=== PATIENT | male | born 1975 | race Caucasian/White ===

== ENCOUNTER 2020-05-12 16:36 | Outpatient (REF) | payer MEDICAID, SELFPAY | END 2020-05-12 16:37 | disposition home or self-care (01) | LOC: HO.LAB 16:36 | PROVIDERS: Visit Provider Internal Medicine | DX: Z20.828 Contact with and (suspected) exposure to other viral communicable diseases (principal) | CPT/HCPCS: C9803; U0003 ==

== ENCOUNTER 2020-07-03 06:35 | Outpatient (REF) | payer MEDICAID, SELFPAY | END 2020-07-03 06:36 | disposition home or self-care (01) | LOC: HO.LAB 06:35 | PROVIDERS: Visit Provider Internal Medicine | DX: Z20.828 Contact with and (suspected) exposure to other viral communicable diseases (principal) | CPT/HCPCS: 36415; C9803; U0003 ==

== ENCOUNTER 2020-11-11 14:43 | Emergency (ER) | payer MEDICAID, SELFPAY ==
[2020-11-11 15:01] VITALS: BP 121/91; PULSE 99; RESP 18; TEMP 36.6; O2SAT 97; BMI 35.5
--- NOTE | 2020-11-11 15:42 | ED_ITS ---
HPI - Back Pain/Injury General Chief Complaint: Back Pain/Injury Stated Complaint: BACK PAIN Time Seen by Provider: 11/11/20 15:30 Source: patient Mode of arrival: ambulatory Limitations: no limitations History of Present Illness HPI Narrative: 45 y/o male presenting with 1 week of worsening nontraumatic low back pain. 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 He denies trauma or specific injury. History of similar pain but not as bad. No urinary symptoms. No numbness, tingling, weakness, incontinence or fevers. Pain is located throughout his entire lower back and it radiates into his hips. MD elicited complaint: back pain Pertinent past history: prior back pain (not as severe) Onset (ago): day(s) (8-) Timing: constant Severity: severe Similar Symptoms Previously: Yes Quality: aching Location: right lower back and left lower back Radiation: buttocks Exacerbating factors: movement Relieving factors: immobilization Context: unknown Associated symptoms: difficulty walking Treatments prior to arrival: acetaminophen Work related injury: Yes Related Data Previous Rx's Medication Instructions Recorded cyclobenzaprine 10 mg PO TID PRN #15 tab 11/11/20 ibuprofen 800 mg PO Q8H PRN #20 tab 11/11/20 lidocaine [Lidoderm] 1 patch TOPICAL DAILY #15 ea 11/11/20 Allergies Allergy/AdvReac Type Severity Reaction Status Date / Time Penicillins [PCN] Allergy Unknown UNKNOWN Verified 11/11/20 15:43 Review of Systems Review of Systems: Constitutional: No Fever, No Chills Cardiovascular: No Chest Pain, No SOB Respiratory: No Cough, No Sputum Gastrointestinal: No Nausea, No Vomiting, No abdominal Pain Genitourinary: No Dysuria, No Urinary Frequency, No Hematuria Musculoskeletal: + joint pain, + Myalgias Skin: No Skin Lesions, No rash Neuro: No Weakness, No Numbness Heme/Lymph: No Bruising, No Lymphadenopathy PMFSH Past Medical History Attestation statement: The following information was validated with the patient. Medical History (Updated 11/11/20 @ 15:42 by MICHELL Marti) No known health problems Social History Social History Advance Directives: No Advance Directives Information Provided: No Physical Exam Vital Signs: Vital Signs: Last Vital Signs Temp 97.9 F 11/11/20 15:01 Pulse 99 11/11/20 15:01 Resp 18 11/11/20 15:52 BP 121/91 H 11/11/20 15:01 Pulse Ox 97 11/11/20 15:01 Body Mass Index 35.5 Appearance: Alert. Oriented X3. No acute distress. HEENT: normal inspection CVS: Normal heart rate and rhythm. Pulses normal. Respiratory: No respiratory distress. Skin: Skin warm and dry. Normal skin color. Normal skin turgor. No rashes. Back: soft tissue tenderness throughout middle and upper lumar areas bilaterally, no spinal tenderness. limited ROM due to pain. slow movement. Extremities: atraumatic, no LE edema Neuro: Oriented X 3. No motor deficit. No sensory deficit. Slow but steady gait. 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 Educated on supportive shoes to improve back support. He has no red flag symptoms of LBP. No fevers, no hx IVDA. Ambulates with steady gait. Will treat for muscular pain with NSAID, muscle relaxer and lidoderm. Patient encouraged to f/u with PCP. Stable for d/c home. Discharge Plan Discharge Clinical Impression: Strain of lumbar region Qualifiers: Encounter type: initial encounter Qualified Code(s): S39.012A - Strain of m uscle, fascia and tendon of lower back, initial encounter Patient Disposition: Home, Self-Care Instructions: Low Back Strain (ED), Lower Back Exercises (ED) Additional Instructions: No bending, lifting or twisting. Use ice several times per day for 20 minutes at a time for the next 48 hours and then change to heat. Take medications as prescribed to help with pain and discomfort. Follow up with your Primary Care Doctor this week. If your pain worsens, if you develop new numbness, tingling, weakness, loss of function or incontinence call 911 or come back to the ER right away for evaluation. Prescriptions: New cyclobenzaprine 10 mg tablet 10 mg PO TID PRN (Reason: muscle spasm) Qty: 15 RF: 0 ibuprofen 800 mg tablet 800 mg PO Q8H PRN (Reason: pain) Qty: 20 RF: 0 lidocaine [Lidoderm] 5 % adhesive patch,medicated 1 patch topical DAILY Qty: 15 RF: 0 Stand Alone Forms: Work/School Release Interventions: ED Discharge Assessment Last Done: 11/11/20 15:51 Discharge Date/Time: 11/11/20 15:53
[2020-11-11] MEDS: Ketorolac Tromethamine 60 MG/2 ML VIAL IM (15:45)
[2020-11-11] MEDS: Lidocaine 4 % Patch ADH..PATCH 1 PATCH TRANSDERMA (15:45)
[2020-11-11] MEDS: HYDROcodone Bit/Acetam 5/325 TABLET 1 TAB PO (15:46)
[2020-11-11 15:52] VITALS: RESP 18
== END 2020-11-11 15:53 | disposition home or self-care (01) ==
PROVIDERS: Emergency Provider Emergency Medicine Emergency Medical Services; PCP Internal Medicine
DX: S39.012A Strain of muscle, fascia and tendon of lower back, initial encounter (principal); X50.1XXA Overexertion from prolonged static or awkward postures, initial encounter; Y93.89 Activity, other specified; Y92.9 Unspecified place or not applicable; Y99.0 Civilian activity done for income or pay
CPT/HCPCS: 96372; 99284; J1885

== ENCOUNTER 2021-05-01 10:47 | Emergency (ER) | payer MEDICAID, SELFPAY ==
--- NOTE | ~2021-05-01 | XR_ITS ---
EXAMINATION: XR CHEST CLINICAL INFORMATION: Cough. Chills, sweating and congested with wheezing for 6 days. COMPARISON: Chest radiograph dated from 02/18/2020. TECHNIQUE: AP view of the chest was obtained. FINDINGS: Normal appearance of the cardiomediastinal silhouette. Mildly increased interstitial markings predominantly in the lung bases without focal airspace opacities, pleural effusions or pneumothorax. No acute osseous findings. XR/XR chest 1V IMPRESSION: Mild interstitial prominence of uncertain etiology. This could be related with an acute infectious or inflammatory process of the small airways such as seen in cases of asthma, bronchitis or atypical infections. No dense focal consolidation.
[2021-05-01 11:03] VITALS: BP 128/79; PULSE 84; RESP 16; TEMP 36.7; O2SAT 96; BMI 35.5
[2021-05-01 11:44] LABS: Strep A Nucleic Acid Negative (Negative)
--- NOTE | 2021-05-01 11:48 | ED.URI ---
HPI - URI/Sore Throat General Chief Complaint: Upper Respiratory Symptoms Stated Complaint: cough, chest wall pain Time Seen by Provider: 05/01/21 11:13 Source: patient Mode of arrival: ambulatory Limitations: no limitations History of Present Illness HPI Narrative: 45-year-old male with a past medical history of asthma presenting to the ED with complaints of chills, diaphoresis, sore throat, cough with wheezing and chest congestion, no sputum production, shortness of breath x6 days worse today. Reports that he had diarrhea for 3 days which has already resolved. He reports he used to use an asthma pump although he does not have any at this time. He denies any measured fevers, dizziness, headache, neck pain/stiffness, chest pain, dyspnea on exertion, orthopnea, palpitations, nausea/vomiting, abdominal pain, dysuria, hematuria, abnormal penile discharge, recent travel or sick contacts, lower extremity edema or calf tenderness or any other symptoms complaints or concerns at this time MD elicited complaint: cough and sore throat Pertinent past history: asthma Onset (ago): day(s) (6 days worse today) Consistency: constant and progressively worsening Severity: moderate Able to tolerate fluids by mouth: Yes Exacerbating factors: swallowing and deep breaths Relieving factors: nothing Associated symptoms: chills (And sweats), sore throat, cough, shortness of breath and diarrhea (Resolved at this time) Treatments prior to arrival: none Related Data Previous Rx's Medication Instructions Recorded cyclobenzaprine 10 mg tablet 10 mg PO TID PRN #15 tab 11/11/20 ibuprofen 800 mg tablet 800 mg PO Q8H PRN #20 tab 11/11/20 lidocaine 5 % topical patch 1 patch TOPICAL DAILY #15 ea 11/11/20 (Lidoderm) albuterol sulfate 0.63 mg/3 mL 0.63 mg INHALATION QID PRN #75 ml 05/01/21 solution for nebulization albuterol sulfate 90 mcg/actuation 1 inh INHALATION QID PRN #8.5 g 05/01/21 aerosol inhaler azithromycin 250 mg tablet See Rx Instructions .ROUTE 05/01/21 .COMPLEX #6 tab codeine 10 mg-guaifenesin 100 mg/5 5 ml PO Q6H PRN #120 ml 05/01/21 mL oral liquid (Guaifenesin AC) nebulizers (AeroEclipse II #1 ea 05/01/21 Nebulizer) prednisone 20 mg tablet 40 mg PO DAILY 5 Days #10 tab 05/01/21 Allergies Allergy/AdvReac Type Severity Reaction Status Date / Time Penicillins [PCN] Allergy Unknown UNKNOWN Verified 11/11/20 15:43 Review of Systems Review of Systems: Constitutional : No Weight loss, No Fever, + Chills, No Night Sweats, No Fatigue, No Malaise ENT/Mouth : No Hearing loss, No Ear Pain, No Nasal Congestion, No Sinus Pain, No Hoarseness, + sore throat, No Rhinorrhea, No Swallowing Difficulty Eyes: No Eye Pain, No Swelling, No Redness, No Foreign Body, No Discharge, No Vision Changes Cardiovascular : No Chest Pain, No SOB, No Dyspnea on Exertion, No Orthopnea, No Edema, No Palpitations Respiratory : + Cough, + Wheezing, + Dyspnea, No sputum Gastrointestinal : No Nausea, No Vomiting, + resolved Diarrhea, No Constipation, No abdominal Pain, No Hematochezia, No Melena Genitourinary : no irregular bleeding, No Dysuria, No Urinary Frequency, No Hematuria, No Urinary Incontinence, No Urgency, No Flank Pain, No Urinary Flow Changes, No Hesitancy Musculoskeletal : No joint pain, No Myalgias, No Joint Swelling Skin : No Skin Lesions, No rash Neuro : No Weakness, No Numbness, No Paresthesias, No Loss of Consciousness, No Dizziness, No Headache Psych : No Anxiety/Panic, No Depression, No SI/HI/AH/VH, No Social Issues, Heme/Lymph: No Bruising, No Bleeding,No Lymphadenopathy Endocrine : No Polyuria, No Polydipsia, No Temperature Intolerance Yes all other systems are reviewed and are negative REPLACED BY [facility] Past Medical History Attestation statement: The following information was validated with the patient. Medical History Asthma No known health problems Sinus infection Social History Social History Advance Directives: No Physical Exam Vital Signs: Vital Signs: Last Vital Signs Temp 98.1 F 05/01/21 11:03 Pulse 84 05/01/21 11:03 Resp 16 05/01/21 11:03 BP 128/79 05/01/21 11:03 Pulse Ox 96 05/01/21 11:03 Body Mass Index 35.5 vital signs have been reviewed as normal and appeared to be correct. Blood pressure normal. Heart rate normal. Respiration rate normal. Temperature normal. Oxygen saturation normal. Appearance: Alert. Oriented X3. No acute distress. Head: Normal external exam. Normocephalic. Atraumatic. Eyes: PERRLA. EOMI. Conjunctiva and sclera normal. Eyelids normal. ENT: EAC normal. TM's Normal. Pharynx normal. Uvula midline. Moist mucous membranes. No trismus noted. No drooling noted. No muffled voice noted. Neck: Normal inspection. Neck supple. FROM. No adenopathy. Thyroid Normal. No meningeal signs. No neck mass noted. CVS: Normal heart rate and rhythm. Heart sound normal. Pulses normal throughout. No murmurs/rales/gallops. Respiratory: No respiratory distress. Painless inspiration. Breath sounds normal. No wheezes/rales/rhonchi noted. Chest nontender. No accessory muscle usage noted or decreased air movement noted. Abdomen: Soft and nontender. Bowel sounds normal in all 4 quadrants. No distention noted. No organomegaly noted. No visible injury noted. Back: No CVA tenderness. Full range of motion noted. No rashes/lesion/induration/fluctuance or signs of infection noted. Skin: Skin warm and dry. Normal skin color. Normal skin turgor. No rashes/lesions/lacerations noted. Extremities: No lower extremity edema. Extremities exhibit normal range of motion. Extremities nontender. Neuro: Oriented X 3. No motor deficit. No sensory deficit. Reflexes normal. Normal steady gait. No focal neuro deficits noted. Vascular: + radial pulses/+ 2 distal pedal pulses/+2 dorsalis pedis b/l. Normal cap refill. No cyanosis noted to upper extremity nails and lower extremity toes nails. Course Course Course Narrative: 45-year-old male with a past medical history of asthma presenting to the ED with complaints of chills, diaphoresis, sore throat, cough with wheezing and chest congestion, no sputum production, shortness of breath x6 days worse today. Reports that he had diarrhea for 3 days which has already resolved. He reports he used to use an asthma pump although he does not have any at this time. Chest x-ray revealed mild interstitial prominence of uncertain etiology which could be related with acute infectious or inflammatory of the small airways such as seen in asthma bronchitis or atypical infection no dense focal consolidation. Patient negative for strep. COVID/RSV/flu swab are still pending at this time although we will DC home with antibiotics and symptomatic treatment instructions to self isolate. I will call him at home in 2-4 hours with negative or positive results for COVID/RSV/flu. Along with instructions return if any new or worsening symptoms to follow up with primary care provider. Patient understands agrees with this plan. MDM - URI/Sore Throat Medical Records Attestation: I reviewed the patient's medical records. Lab Data Attestation: I reviewed the patient's lab results. Labs: Lab Results 05/01/21 Range/Units 11:22 S. pyogenes GrpA HEBER Negative (Negative) Imaging Data Chest x-ray: Attestation: I personally reviewed and interpreted this imaging study as follows: Radiologist's impression: FINDINGS: Normal appearance of the cardiomediastinal silhouette. Mildly increased interstitial markings predominantly in the lung bases without focal airspace opacities, pleural effusions or pneumothorax. No acute osseous findings. XR/XR chest 1V IMPRESSION: Mild interstitial prominence of uncertain etiology. This could be related with an acute infectious or inflammatory process of the small airways such as seen in cases of asthma, bronchitis or atypical infections. No dense focal consolidation. Discharge Plan Discharge Clinical Impression: Acute bronchitis with bronchospasm, Asthma exacerbation Patient Disposition: Home, Self-Care Instructions: Asthma (ED), How to Use a Metered-Dose Inhaler (ED), Acute Bronchitis (ED), How to Use a Nebulizer (ED) Additional Instructions: Based on your symptoms and history we have sent a COVID-19. Although your RESULT IS PENDING at this time. RESULTS should return within 2-4 hours. At this time you will be contacted with either NEGATIVE OR POSITIVE results. -Please wait until we contact you for your results. At this time you will be okay for discharge. Please plan for self quarantine for up to 14 days. Do not expose yourself to others. You may not go to work. If testing does come back negative you may return to activities as long as you are no longer having any symptoms for at least 3 days. Please continue to follow cold instructions and wash your hands frequently. You may take Tylenol as directed on the bottle for pain or fever. Patient seen in the emergency department on 04/30/2021 and should be excused from work until negative test results AND until 72 hours without any symptoms AND at least 7-10 days have passed since symptoms first appeared or since last exposure to COVID-19 positive patient CDC Guidelines for home isolation: - Stay away from others - WEAR A MASK if you are sick AND STAY HOME - Cover your mouth and nose with a tissue when you cough or sneeze. Dispose of tissues in a lined trash can and wash your hands immediately with soap and water for at least 20 seconds. If soap and water are not available, clean hands with alcohol-based hand intensivist that contains at least 60% alcohol. - Clean your hands often with soap and water for at least 20 seconds - Avoid touching your eyes, nose and mouth with unwashed hands - Do not share dishes, drinking glasses, cups, eating utensils, towels, or bedding with other people in your home. After using these items, wash them thoroughly with soap and water or put in the warehouse handler. - Clean high-touch surfaces in your isolation area ( sick room and bathroom) every day; let a caregiver clean and disinfect high-touch surfaces in other areas of the home. Clean the area or item with soap and water or another detergent if it is dirty. Then, use a household disinfectant. - Limit contact with pets and animals: If you must care for a pet, wash your hands before and after interacting with them). Prescriptions: New albuterol sulfate 0.63 mg/3 mL solution for nebulization 0.63 mg inhalation QID PRN (Reason: shortness of breath or wheezing) Qty: 75 RF: 0 azithromycin 250 mg tablet See Rx Instructions .ROUTE .COMPLEX Qty: 6 RF: 0 prednisone 20 mg tablet 40 mg PO DAILY 5 Days Qty: 10 RF: 0 (DME) AeroEclipse II Nebulizer Misc See Rx Instructions .ROUTE .MEDSUPPLY Qty: 1 RF: 0 codeine-guaifenesin [Guaifenesin AC] 10-100 mg/5 mL liquid 5 ml PO Q6H PRN (Reason: cold symptoms) Qty: 120 RF: 0 albuterol sulfate 90 mcg/actuation HFA aerosol inhaler 1 inh inhalation QID PRN (Reason: shortness of breath or wheezing) Qty: 8.5 RF: 0 No Action cyclobenzaprine 10 mg tablet 10 mg PO TID PRN (Reason: muscle spasm) Qty: 15 RF: 0 ibuprofen 800 mg tablet 800 mg PO Q8H PRN (Reason: pain) Qty: 20 RF: 0 lidocaine [Lidoderm] 5 % adhesive patch,medicated 1 patch topical DAILY Qty: 15 RF: 0 Referrals: Sonia Spann MD [Primary Care Provider] - 2 days Stand Alone Forms: Work/School Release Print Language: Turkmen
[2021-05-01 12:21] LABS: Influenza A PCR NEGATIVE (Negative); Influenza B PCR NEGATIVE (Negative); Resp Syncy Virus RNA Qual PCR NEGATIVE (Negative); SARS COV2 PCR INHOUSE NEGATIVE (Negative)
== END 2021-05-01 12:08 | disposition home or self-care (01) ==
PROVIDERS: Physician Assistant Medical; Emergency Provider Emergency Medicine Emergency Medical Services; PCP Internal Medicine
DX: J45.901 Unspecified asthma with (acute) exacerbation (principal); J20.9 Acute bronchitis, unspecified; Z79.899 Other long term (current) drug therapy; Z20.822 Contact with and (suspected) exposure to COVID-19
CPT/HCPCS: 0241U; 36415; 71045; 87651; 99283

== ENCOUNTER 2021-05-30 08:18 | Emergency (ER) | payer MEDICAID, SELFPAY ==
[2021-05-30 08:27] VITALS: BP 133/88; PULSE 88; RESP 18; TEMP 36.9; O2SAT 98; BMI 36.3
--- NOTE | 2021-05-30 08:30 | ECG_ITS ---
Test Reason : DIZZY Blood Pressure : / mmHG Vent. Rate : 073 BPM Atrial Rate : 073 BPM P-R Int : 144 ms QRS Dur : 084 ms QT Int : 368 ms P-R-T Axes : 059 052 036 degrees QTc Int : 405 ms Artifact in tracing Sinus rhythm with sinus arrhythmia Normal ECG When compared with ECG of 18-FEB-2020 10:51, No significant changes seen Referred By: Generic ED Physician Electronically Signed By:NOVA PALACIOS
[2021-05-30] MEDS: hydrOXYzine HCL 25 MG TABLET PO (10:07)
[2021-05-30 10:11] LABS: MANUAL DIFF FLAG NO
[2021-05-30 10:19] LABS: Basophils Percent Auto 0.4 % (0-2); Eosinophils Absolute Auto 0.2 X10*3/uL (0.0-0.4); Eosinophils Percent Auto 2.7 % (0-4); Hematocrit 44.7 % (42.0-52.0); Hemoglobin 14.9 g/dl (14.0-18.0); Imm Gran Abs Auto 0.01 X10*3/uL (0.00-0.03); Imm Gran Pct Auto 0.1 % (0.0-0.4); Lymphocytes Absolute Auto 2.1 X10*3/uL (1.2-4.9); Lymphocytes Percent Auto 30.7 % (20-40); Mean Corpuscular HGB Conc 33.3 g/dl (31.0-36.0); Mean Corpuscular Hemoglobin 30.1 pg (27.0-33.0); Mean Corpuscular Volume 90.3 fL (80.0-98.0); Mean Platelet Volume 10.5 fL (9.4-12.4); Monocytes Absolute Auto 0.4 X10*3/uL (0.1-1.2); Monocytes Percent Auto 5.7 % (2-11); Neutrophils Absolute Auto 4.1 x10*3/uL (2.0-8.3); Neutrophils Percent Auto 60.4 % (45-73); Platelet Count 220 X10*3/uL (160-400); Red Blood Count 4.95 X10*6/uL (4.60-5.80); Red Cell Distribution Width 12.6 % (11.0-16.0); White Blood Count 6.7 X10*3/uL (4.8-10.8)
[2021-05-30 10:35] LABS: Alanine Aminotransferase 83 U/L (0-40); Albumin Level 4.2 g/dL (3.5-5.0); Alkaline Phosphatase 55 U/L (39-117); Anion Gap 10 (12-20); Aspartate Amino Transferase 38 U/L (5-37); Bilirubin Direct 0.2 mg/dL (0.0-0.5); Bilirubin Total 0.6 mg/dL (0.0-1.0); Blood Urea Nitrogen 10 mg/dL (9-16); Calcium 9.3 mg/dL (8.4-10.2); Carbon Dioxide 29 mmol/L (22-29); Chloride 106 mmol/L (96-108); Estimated Glomerular Filt Rate > 60; Glucose Random 105 mg/dL (60-115); Magnesium 2.1 mg/dL (1.6-2.6); Potassium 4.2 mmol/L (3.3-5.1); Sodium 141 mmol/L (135-145); Total Protein 6.9 g/dL (6.5-8.0)
[2021-05-30 10:41] LABS: Troponin-I High Sensitivity < 3.5 ng/L (<3.5-35.0)
--- NOTE | 2021-05-30 11:04 | ED.NEUROSD ---
HPI - Neuro Symptoms/Deficit General Chief Complaint: Neuro Symptoms/Deficit Stated Complaint: TINGLING IN FACE DIFF BREATHING AND SWALLOWING Time Seen by Provider: 05/30/21 09:33 Source: patient Mode of arrival: ambulatory History of Present Illness HPI Narrative: 45-year-old male with a past medical history of asthma, sinusitis, presenting to the ED complaining of sudden onset finger/facial tingling with chest tightness and difficulty swallowing this morning while at work. Reports symptomatic improvement now with mild residual oral tingling. Admits to SOB during episode denies at present. Reports similar incidents in the past with anxiety reaction. Denies headache, vision change/loss, weakness, abdominal pain, nausea/vomiting Onset (ago): hour(s) Relieving factors: time On Anticoagulants: No Associated symptoms: chest pain and shortness of breath Treatments Prior to Arrival: none Related Data Previous Rx's Medication Instructions Recorded cyclobenzaprine 10 mg tablet 10 mg PO TID PRN #15 tab 11/11/20 ibuprofen 800 mg tablet 800 mg PO Q8H PRN #20 tab 11/11/20 lidocaine 5 % topical patch 1 patch TOPICAL DAILY #15 ea 11/11/20 (Lidoderm) albuterol sulfate 0.63 mg/3 mL 0.63 mg (3 mL) INHALATION QID PRN 05/01/21 solution for nebulization #75 ml albuterol sulfate 90 mcg/actuation 1 inh INHALATION QID PRN #8.5 g 05/01/21 aerosol inhaler azithromycin 250 mg tablet See Rx Instructions .ROUTE 05/01/21 .COMPLEX #6 tab codeine 10 mg-guaifenesin 100 mg/5 5 ml PO Q6H PRN #120 ml 05/01/21 mL oral liquid (Guaifenesin AC) nebulizers (AeroEclipse II #1 ea 05/01/21 Nebulizer) prednisone 20 mg tablet 40 mg PO DAILY 5 Days #10 tab 05/01/21 Allergies Allergy/AdvReac Type Severity Reaction Status Date / Time Penicillins [PCN] Allergy Unknown UNKNOWN Verified 11/11/20 15:43 Review of Systems Review of Systems: Constitutional: No Fever, No Chills, No Fatigue, No Malaise ENT/Mouth: No Ear Pain, No Nasal Congestion, No sore throat, No Rhinorrhea, No Swallowing Difficulty Eyes: No Eye Pain, No Swelling, No Discharge, No Vision Changes Cardiovascular: + Chest tightness, + SOB (resolved), No Edema, No Palpitations Respiratory: No Cough, No Sputum, No Dyspnea Gastrointestinal: No Nausea, No Vomiting, No Abdominal pain Genitourinary: No Dysuria, No Urinary Frequency, No Flank Pain, No Urinary Flow Changes Musculoskeletal: No joint pain, No Myalgias, No Joint Swelling Skin: No Skin Lesions, No rash Neuro: No Weakness, No Numbness, + Paresthesias, No Loss of Consciousness, No Dizziness, No Headache Yes all other systems are reviewed and are negative Neurologic: Denies Abnormal speech present COUNTS INCLUDE 234 BEDS AT THE [facility] Past Medical History Attestation statement: The following information was validated with the patient. Medical History Asthma No known health problems Sinus infection Social History Social History Advance Directives: No Advance Directives Information Provided: No Physical Exam Vital Signs: Vital Signs: Last Vital Signs Temp 98.0 F 05/30/21 11:12 Pulse 65 05/30/21 11:12 Resp 18 05/30/21 11:12 BP 119/75 05/30/21 11:12 Pulse Ox 99 05/30/21 11:12 BMI result Body Mass Index 36.3 Const: General: cooperative, healthy appearing, no acute distress and anxious Orientation/consciousness: patient oriented x3 Limitations: no limitations HENMT: Head: Yes normal to inspection and Yes atraumatic Ears: hearing grossly normal bilaterally General nose exam: Normal external nose present Face and sinus: Yes normal facial exam Throat: Yes posterior oropharynx normal Eyes: General: appearance normal, both eyes and all related structures EOM: EOMs intact bilaterally Neck: Neck: Yes normal visual inspection and Yes no meningeal signs Resp: Effort & Inspection: normal respiratory effort Auscultation: clear to auscultation bilaterally, no rales, no rhonchi and no wheezes Cardio: Rate: regular rate Heart sounds: S1 normal heart sound present and S2 normal heart sound present GI: Inspection: Yes normal to inspection Palpation (GI): Soft to palpation, nontender, no guarding and not rigid Skin: Rashes: no rashes Wounds: no wounds Neuro: General: patient oriented x3, gait normal, tone normal, moves all extremities, no meningeal signs, no focal motor deficits and CN's II-XI intact bilaterally Cranial nerves: Yes CN's II-XII intact bilaterally and Yes Bilaterally intact EOM present Cognition (Neuro): normal cognition Speech: No Abnormal speech present Gait exam (Neuro): Normal gait present Motor exam (neuro): 5/5 motor strength present throughout, Pronator motor function not present and no tremor noted Coordination: [id number] test normal Romberg Test: Negative Extrem: General: Yes normal to inspection and Yes no pedal edema Course Course Course Narrative: -labs unremarkable, troponin x2 negative Results discussed with patient including worrisome signs and symptoms and strict return precautions and need to follow-up with PCP/Cardiology for patient verbalized understanding feel safe for discharge home at this time MDM - Neuro Symptoms/Deficit MDM Narrative Medical decision making narrative: 45-year-old male with a past medical history of asthma, sinusitis, presenting to the ED complaining of sudden onset finger/facial tingling with chest tightness and difficulty swallowing this morning while at work. On exam vital signs stable, NAD/nontoxic, no focal neuro deficits. Concern for anxiety reaction vs ACS. Symptoms atypical for CVA/TIA Plan: EKG, labs, PO hydroxyzine, re-evaluate Medical Records Attestation: I reviewed the patient's medical records. Lab Data Attestation: I reviewed the patient's lab results. Result diagrams: 05/30/21 10:05 05/30/21 10:05 Labs: Lab Results 05/30/21 05/30/21 05/30/21 Range/Units 10:05 10:05 10:05 WBC 6.7 (4.8-10.8) X10*3/uL RBC 4.95 (4.60-5.80) X10*6/uL Hgb 14.9 (14.0-18.0) g/dl Hct 44.7 (42.0-52.0) % MCV 90.3 (80.0-98.0) fL MCH 30.1 (27.0-33.0) pg MCHC 33.3 (31.0-36.0) g/dl RDW 12.6 (11.0-16.0) % Plt Count 220 (160-400) X10*3/uL MPV 10.5 (9.4-12.4) fL Immature Gran % (Auto) 0.1 (0.0-0.4) % Neut % (Auto) 60.4 (45-73) % Lymph % (Auto) 30.7 (20-40) % [place] % (Auto) 5.7 (2-11) % Eos % (Auto) 2.7 (0-4) % Baso % (Auto) 0.4 (0-2) % Lymph # (Auto) 2.1 (1.2-4.9) X10*3/uL [place] # (Auto) 0.4 (0.1-1.2) X10*3/uL Eos # (Auto) 0.2 (0.0-0.4) X10*3/uL Baso # (Auto) 0.0 (0.0-0.2) X10*3/uL Abs Immat Gran (auto) 0.01 (0.00-0.03) X10*3/uL Absolute Neuts (auto) 4.1 (2.0-8.3) x10*3/uL Absolute Nucleated RBC 0.000 (0.0-0.012) X10*3/uL Nucleated RBC % (auto) 0.0 (0.0-0.2) /100WBC Sodium 141 (135-145) mmol/L Potassium 4.2 (3.3-5.1) mmol/L Chloride 106 (96-108) mmol/L Carbon Dioxide 29 (22-29) mmol/L Anion Gap 10 L (12-20) BUN 10 (9-16) mg/dL Creatinine 1.11 (0.5-1.4) mg/dL Estim Creat Clear Calc 95.0 Estimated GFR > 60 Random Glucose 105 (60-115) mg/dL Calcium 9.3 (8.4-10.2) mg/dL Magnesium 2.1 (1.6-2.6) mg/dL Total Bilirubin 0.6 (0.0-1.0) mg/dL Direct Bilirubin 0.2 (0.0-0.5) mg/dL AST 38 H (5-37) U/L ALT 83 H (0-40) U/L Alkaline Phosphatase 55 (39-117) U/L Troponin I High Sens < 3.5 (<3.5-35.0) ng/L Total Protein 6.9 (6.5-8.0) g/dL Albumin 4.2 (3.5-5.0) g/dL 05/30/21 Range/Units 12:35 WBC (4.8-10.8) X10*3/uL RBC (4.60-5.80) X10*6/uL Hgb (14.0-18.0) g/dl Hct (42.0-52.0) % MCV (80.0-98.0) fL MCH (27.0-33.0) pg MCHC (31.0-36.0) g/dl RDW (11.0-16.0) % Plt Count (160-400) X10*3/uL MPV (9.4-12.4) fL Immature Gran % (Auto) (0.0-0.4) % Neut % (Auto) (45-73) % Lymph % (Auto) (20-40) % [place] % (Auto) (2-11) % Eos % (Auto) (0-4) % Baso % (Auto) (0-2) % Lymph # (Auto) (1.2-4.9) X10*3/uL [place] # (Auto) (0.1-1.2) X10*3/uL Eos # (Auto) (0.0-0.4) X10*3/uL Baso # (Auto) (0.0-0.2) X10*3/uL Abs Immat Gran (auto) (0.00-0.03) X10*3/uL Absolute Neuts (auto) (2.0-8.3) x10*3/uL Absolute Nucleated RBC (0.0-0.012) X10*3/uL Nucleated RBC % (auto) (0.0-0.2) /100WBC Sodium (135-145) mmol/L Potassium (3.3-5.1) mmol/L Chloride (96-108) mmol/L Carbon Dioxide (22-29) mmol/L Anion Gap (12-20) BUN (9-16) mg/dL Creatinine (0.5-1.4) mg/dL Estim Creat Clear Calc Estimated GFR Random Glucose (60-115) mg/dL Calcium (8.4-10.2) mg/dL Magnesium (1.6-2.6) mg/dL Total Bilirubin (0.0-1.0) mg/dL Direct Bilirubin (0.0-0.5) mg/dL AST (5-37) U/L ALT (0-40) U/L Alkaline Phosphatase (39-117) U/L Troponin I High Sens < 3.5 (<3.5-35.0) ng/L Total Protein (6.5-8.0) g/dL Albumin (3.5-5.0) g/dL Discharge Plan Discharge Clinical Impression: Atypical chest pain Patient Disposition: Home, Self-Care Instructions: Noncardiac Chest Pain (ED), Panic Attack (ED) Additional Instructions: Your blood work was reassuring today in the emergency department please follow-up with Cardiology is needed. If her symptoms persist or worsen, become more constant, you develop shortness breath, chest pain, fever, return to the ED Prescriptions: No Action cyclobenzaprine 10 mg tablet 10 mg PO TID PRN (Reason: muscle spasm) Qty: 15 RF: 0 ibuprofen 800 mg tablet 800 mg PO Q8H PRN (Reason: pain) Qty: 20 RF: 0 lidocaine [Lidoderm] 5 % adhesive patch,medicated 1 patch topical DAILY Qty: 15 RF: 0 albuterol sulfate 0.63 mg/3 mL solution for nebulization 0.63 mg inhalation QID PRN (Reason: shortness of breath or wheezing) Qty: 75 RF: 0 azithromycin 250 mg tablet See Rx Instructions .ROUTE .COMPLEX Qty: 6 RF: 0 prednisone 20 mg tablet 40 mg PO DAILY 5 Days Qty: 10 RF: 0 (DME) AeroEclipse II Nebulizer Misc See Rx Instructions .ROUTE .MEDSUPPLY Qty: 1 RF: 0 codeine-guaifenesin [Guaifenesin AC] 10-100 mg/5 mL liquid 5 ml PO Q6H PRN (Reason: cold symptoms) Qty: 120 RF: 0 albuterol sulfate 90 mcg/actuation HFA aerosol inhaler 1 inh inhalation QID PRN (Reason: shortness of breath or wheezing) Qty: 8.5 RF: 0 Referrals: Sonia Spann MD [Primary Care Provider] - 2 days Stand Alone Forms: Work/School Release
[2021-05-30 11:12] VITALS: BP 119/75; PULSE 65; RESP 18; TEMP 36.7; O2SAT 99
[2021-05-30 12:59] LABS: Troponin-I High Sensitivity < 3.5 ng/L (<3.5-35.0)
== END 2021-05-30 13:50 | disposition home or self-care (01) ==
PROVIDERS: Physician Assistant; Emergency Provider Emergency Medicine; PCP Internal Medicine
DX: R07.89 Other chest pain (principal); R06.02 Shortness of breath; Z79.899 Other long term (current) drug therapy
CPT/HCPCS: 36415; 80048; 80076; 83735; 84484; 85025; 93005; 99283; 99284

== ENCOUNTER 2021-11-19 06:32 | Emergency (ER) | payer MEDICAID, SELFPAY ==
--- NOTE | ~2021-11-19 | XR_ITS ---
EXAMINATION: XR CHEST CLINICAL INFORMATION: Chest pain COMPARISON: 05/01/2021 TECHNIQUE: Frontal view of the chest was obtained. FINDINGS: No significant abnormality is noted involving the heart, lungs, mediastinum, bony thorax or soft tissues. XR/XR chest 1V IMPRESSION: Unremarkable examination.
--- NOTE | 2021-11-19 06:47 | ECG_ITS ---
Test Reason : CP Blood Pressure : / mmHG Vent. Rate : 082 BPM Atrial Rate : 082 BPM P-R Int : 136 ms QRS Dur : 076 ms QT Int : 352 ms P-R-T Axes : 055 060 043 degrees QTc Int : 411 ms Normal sinus rhythm Normal ECG When compared with ECG of 30-MAY-2021 08:35, No significant change was found Referred By: Nayeli Yee Electronically Signed By:Rex Marc
[2021-11-19 06:52] VITALS: BP 133/72; PULSE 86; RESP 18; TEMP 36.9; O2SAT 98; BMI 35.2
--- NOTE | 2021-11-19 07:42 | ED.URI ---
HPI - URI/Sore Throat General Chief Complaint: Upper Respiratory Symptoms Stated Complaint: flu like symptoms Time Seen by Provider: 11/19/21 07:41 Source: patient Mode of arrival: ambulatory Limitations: no limitations History of Present Illness HPI Narrative: 46-year-old male came in for evaluation of coughing, sore throat, body ache. This is 46-year-old male work as a [employer] presented with 2 days of coughing, nasal congestion, sore throat and body ache, patient was seen and evaluated, urgent care yesterday COVID testing still pending, declined recent travel, no sick contacts. Related Data Previous Rx's Medication Instructions Recorded cyclobenzaprine 10 mg tablet 10 mg PO TID PRN #15 tab 11/11/20 ibuprofen 800 mg tablet 800 mg PO Q8H PRN #20 tab 11/11/20 lidocaine 5 % topical patch 1 patch TOPICAL DAILY #15 ea 11/11/20 (Lidoderm) albuterol sulfate 0.63 mg/3 mL 0.63 mg (3 mL) INHALATION QID PRN 05/01/21 solution for nebulization #75 ml albuterol sulfate 90 mcg/actuation 1 inh INHALATION QID PRN #8.5 g 05/01/21 aerosol inhaler azithromycin 250 mg tablet See Rx Instructions .ROUTE 05/01/21 .COMPLEX #6 tab codeine 10 mg-guaifenesin 100 mg/5 5 ml PO Q6H PRN #120 ml 05/01/21 mL oral liquid (Guaifenesin AC) nebulizers (AeroEclipse II #1 ea 05/01/21 Nebulizer) prednisone 20 mg tablet 40 mg PO DAILY 5 Days #10 tab 05/01/21 azithromycin 250 mg tablet See Rx Instructions .ROUTE 11/19/21 (Zithromax Z-Wero) .COMPLEX #6 tab Allergies Allergy/AdvReac Type Severity Reaction Status Date / Time Penicillins [PCN] Allergy Unknown UNKNOWN Verified 11/11/20 15:43 Review of Systems Review of Systems: All other systems are reviewed and are negative Constitutional: Reports as per HPI and Reports no additional constitutional complaints Eyes: Reports as per HPI and Reports no additional eye complaints Reports system reviewed and no additional complaints, except as documented Cardiovascular: Reports as per HPI and Reports no additional cardiovascular complaints Respiratory: Reports as per HPI and Reports no additional respiratory complaints Gastrointestinal: Reports as per HPI and Reports no additional gastrointestinal complaints Genitourinary: Reports no additional female genitourinary complaints Musculoskeletal: Reports no additional musculoskeletal complaints Skin/Breast: Reports system reviewed and no additional complaints, except as docu Psychiatric: Reports no additional psychiatric complaints Endocrine: Reports no additional endocrine complaints Hematologic/Lymphatic: Reports no additional hematologic/lymphatic complaints Allergic/Immunologic: Reports no additional allergic/immunologic complaints Reports system reviewed and no additional complaints, except as documented and Reports Abnormal speech present [facility] Past Medical History Medical History Asthma No known health problems Sinus infection Social History Social History Advance Directives: No Advance Directives Information Provided: Yes Physical Exam Vital Signs: Vital Signs: Last Vital Signs Temp 98.2 F 11/19/21 08:08 Pulse 77 11/19/21 08:08 Resp 19 11/19/21 08:08 BP 131/88 11/19/21 08:08 Pulse Ox 96 11/19/21 08:08 BMI result Body Mass Index 35.2 Vital signs have been reviewed as appeared to be correct. Blood pressure normal. Heart rate normal. Respiration rate normal. Temperature normal. Oxygen saturation normal. Appearance: Alert. Oriented X3. No acute distress. Head: Normal external exam. Normocephalic. Atraumatic. No Perez signs noted. No raccoon eyes noted Eyes: PERRLA. EOMI. Conjunctiva and sclera normal. Eyelids normal. ENT: TM's Normal. Pharynx normal. Uvula midline. Moist mucous membranes. No trismus noted. No drooling noted. No muffled voice noted. Tenderness over bilateral frontal sinuses and maxillary sinuses to percussion. Neck: Normal inspection. Neck supple. FROM. No adenopathy. Thyroid Normal. No meningeal signs. No neck mass noted. CVS: Normal heart rate and rhythm. Heart sound normal. No murmurs noted. Pulses normal throughout. Respiratory: No respiratory distress. Painless inspiration. Breath sounds normal. No wheezes/rales/rhonchi noted. Chest nontender. No accessory muscle usage noted or decreased air movement noted. Abdomen: Soft and nontender. Bowel sounds normal in all 4 quadrants. No distention noted. No organomegaly noted. No visible injury noted. Back: No CVA tenderness. Full range of motion noted. Skin: Skin warm and dry. Normal skin color. Normal skin turgor. No rashes/lesions/lacerations noted. Extremities: No lower extremity edema. Extremities exhibit normal range of motion. Extremities nontender. Neuro: Oriented X 3. Cranial nerve exam: II-XII are grossly intact No motor deficit. No sensory deficit. Reflexes normal. Course Course Course Narrative: Assessment and plan. Maxillary sinus tenderness to percussion exam is consistent with sinusitis, patient is negative for viral infection or strep pharyngitis. Start the patient on Z-Wero. MDM - URI/Sore Throat Lab Data Attestation: I reviewed the patient's lab results. Labs: Lab Results 11/19/21 Range/Units 07:55 Influenza Type A (PCR) NEGATIVE (Negative) Influenza Type B (PCR) NEGATIVE (Negative) RSV RNA Qual (PCR) NEGATIVE (Negative) SARS-CoV-2 RNA (RT-PCR) NEGATIVE (Negative) Imaging Data Chest x-ray: Attestation: I personally reviewed and interpreted this imaging study as follows: Radiologist's impression: No acute pathology Discharge Plan Discharge Clinical Impression: Sinusitis Patient Disposition: Home, Self-Care Instructions: Sinusitis (ED) Prescriptions: New azithromycin [Zithromax Z-Wero] 250 mg tablet See Rx Instructions .ROUTE .COMPLEX Qty: 6 0RF Rx Instructions: For 250 mg dose pack: take 500 mg today (day 1), then 250 mg for 4 days (days 2-5) No Action cyclobenzaprine 10 mg tablet 10 mg PO TID PRN (Reason: muscle spasm) Qty: 15 0RF ibuprofen 800 mg tablet 800 mg PO Q8H PRN (Reason: pain) Qty: 20 0RF lidocaine [Lidoderm] 5 % adhesive patch,medicated 1 patch topical DAILY Qty: 15 0RF Rx Instructions: leave on most painful area for up to 12 hrs albuterol sulfate 0.63 mg/3 mL solution for nebulization 0.63 mg inhalation QID PRN (Reason: shortness of breath or wheezing) Qty: 75 0RF azithromycin 250 mg tablet See Rx Instructions .ROUTE .COMPLEX Qty: 6 0RF Rx Instructions: take 500 mg today (day 1), then 250 mg for 4 days (days 2-5) prednisone 20 mg tablet 40 mg PO DAILY 5 Days Qty: 10 0RF (DME) AeroEclipse II Nebulizer Misc See Rx Instructions .ROUTE .MEDSUPPLY Qty: 1 0RF Rx Instructions: As directed codeine-guaifenesin [Guaifenesin AC] 10-100 mg/5 mL liquid 5 ml PO Q6H PRN (Reason: cold symptoms) Qty: 120 0RF albuterol sulfate 90 mcg/actuation HFA aerosol inhaler 1 inh inhalation QID PRN (Reason: shortness of breath or wheezing) Qty: 8.5 0RF Referrals: [facility] [Primary Care Provider] -
[2021-11-19 08:08] VITALS: BP 131/88; PULSE 77; RESP 19; TEMP 36.8; O2SAT 96
[2021-11-19 08:44] LABS: Influenza A PCR NEGATIVE (Negative); Influenza B PCR NEGATIVE (Negative); Resp Syncy Virus RNA Qual PCR NEGATIVE (Negative); SARS COV2 PCR INHOUSE NEGATIVE (Negative)
== END 2021-11-19 09:31 | disposition home or self-care (01) ==
PROVIDERS: Emergency Provider Emergency Medicine
DX: J32.9 Chronic sinusitis, unspecified (principal); Z20.822 Contact with and (suspected) exposure to COVID-19
CPT/HCPCS: 0241U; 71045; 93005; 99283

== ENCOUNTER 2021-11-26 17:40 | Emergency (ER) | payer MEDICAID, SELFPAY ==
[2021-11-26 18:06] VITALS: BP 146/77; PULSE 81; RESP 16; TEMP 36.1; O2SAT 98; BMI 35.5
[2021-11-26] MEDS: diazePAM 2 MG TABLET 5 MG PO (19:43)
[2021-11-26] MEDS: Ketorolac Tromethamine 30 MG/ML VIAL IM (19:48)
--- NOTE | 2021-11-26 19:55 | ED.NECK ---
HPI - Neck Pain/Injury General Chief Complaint: Neck Pain/Injury Stated Complaint: neck pain Time Seen by Provider: 11/26/21 19:10 Source: patient Mode of arrival: ambulatory History of Present Illness HPI Narrative: 46-year-old male with past medical history of asthma presenting to the ED complaining of left-sided neck pain/spasming since waking this morning. Reports woke up with the pain, denies direct injury/trauma or fall/heavy lifting. Admits pain worse with palpation and movement. Denies fever, chills, lightheadedness/dizziness, headache, ear pain, sore throat, difficulty swallowing, numbness/tingling, weakness, CP. Denies taking anticoagulation MD complaint: neck pain Onset (ago): hour(s) Place: home Related Data Previous Rx's Medication Instructions Recorded cyclobenzaprine 10 mg tablet 10 mg PO TID PRN #15 tab 11/11/20 ibuprofen 800 mg tablet 800 mg PO Q8H PRN #20 tab 11/11/20 lidocaine 5 % topical patch 1 patch TOPICAL DAILY #15 ea 11/11/20 (Lidoderm) albuterol sulfate 0.63 mg/3 mL 0.63 mg (3 mL) INHALATION QID PRN 05/01/21 solution for nebulization #75 ml albuterol sulfate 90 mcg/actuation 1 inh INHALATION QID PRN #8.5 g 05/01/21 aerosol inhaler azithromycin 250 mg tablet See Rx Instructions .ROUTE 05/01/21 .COMPLEX #6 tab codeine 10 mg-guaifenesin 100 mg/5 5 ml PO Q6H PRN #120 ml 05/01/21 mL oral liquid (Guaifenesin AC) nebulizers (AeroEclipse II #1 ea 05/01/21 Nebulizer) prednisone 20 mg tablet 40 mg PO DAILY 5 Days #10 tab 05/01/21 azithromycin 250 mg tablet See Rx Instructions .ROUTE 11/19/21 (Zithromax Z-Wero) .COMPLEX #6 tab acetaminophen 500 mg capsule 500 mg PO Q6H PRN #14 cap 11/26/21 (Tylophen) cyclobenzaprine 5 mg tablet 5 mg PO Q8H PRN 5 Days #14 tab 11/26/21 lidocaine 5 % topical patch 1 patch TOPICAL DAILY PRN #30 ea 11/26/21 (Lidoderm) MDD remove after 12 hours naproxen 500 mg tablet 500 mg PO BID PRN 10 Days #20 tab 11/26/21 Allergies Allergy/AdvReac Type Severity Reaction Status Date / Time Penicillins [PCN] Allergy Unknown UNKNOWN Verified 11/11/20 15:43 Review of Systems Review of Systems: Constitutional: No Fever, No Chills ENT/Mouth: No Ear Pain, No Nasal Congestion, No Hoarseness, No sore throat, No Rhinorrhea, No Swallowing Difficulty Cardiovascular: No Chest Pain, No SOB Respiratory: No Cough, No Sputum Gastrointestinal: No Nausea, No Vomiting, No Abdominal pain Genitourinary: No Dysuria, No Urinary Frequency, No Urinary Incontinence/retentionin Musculoskeletal: + joint pain, No Myalgias, No Joint Swelling Skin: No Skin Lesions, No rash Neuro: No Weakness, No Numbness, No Paresthesias, no headache, no lightheadedness/dizziness Yes all other systems are reviewed and are negative [facility] Past Medical History Attestation statement: The following information was validated with the patient. Medical History Asthma No known health problems Sinus infection Social History Social History Advance Directives: No Advance Directives Information Provided: No Physical Exam Vital Signs: Vital Signs: Last Vital Signs Temp 97 F 11/26/21 18:06 Pulse 81 11/26/21 18:06 Resp 16 11/26/21 18:06 BP 146/77 H 11/26/21 18:06 Pulse Ox 98 11/26/21 18:06 BMI result Body Mass Index 35.5 Const: General: cooperative, healthy appearing and no acute distress Orientation/consciousness: patient oriented x3 Limitations: no limitations HEENT: Head: Yes normal to inspection and Yes atraumatic Ears: hearing grossly normal bilaterally, external ears normal, TM's normal bilaterally, mastoids normal and no periauricular adenopathy General nose exam: Normal external nose present Face and sinus: Yes normal facial exam Mouth: Normal oral and palatal mucosa present Throat: Yes posterior oropharynx normal, Yes tonsils normal, Yes uvula midline, No peritonsillar mass and No uvular edema Eyes: General: appearance normal, both eyes and all related structures EOM: EOMs intact bilaterally Neck: Other: No midline cervical spinous tenderness/step-off or deformity. Left-sided paraspinal/MSK tenderness to palpation reproducing subjective complaint. No erythema/ecchymosis. No crepitus. ROM of neck limited secondary to pain/stiffness Neck: Yes normal visual inspection, Yes no lymphadenopathy, Yes no meningeal signs, No anterior neck swelling and Yes torticollis Resp: Effort & Inspection: normal respiratory effort, able to speak in complete sentences, no respiratory distress and no stridor Auscultation: clear to auscultation bilaterally Cardio: Rate: regular rate Heart sounds: S1 normal heart sound present and S2 normal heart sound present : General: Yes no CVA tenderness Back/Spine/Pelvis: Other: No midline thoracic/lumbar spinous tenderness/step-off or deformity Back: no CVA tenderness Skin: Rashes: no rashes Wounds: no wounds Neuro: General: patient oriented x3, gait normal, tone normal, moves all extremities, no meningeal signs and no focal motor deficits Gait exam (Neuro): Normal gait present Motor exam (neuro): 5/5 motor strength present throughout Extrem: General: Yes normal to inspection Course Course Course Narrative: -patient reports symptomatic improvement after medications given in the ED. MDM - Neck Pain/Injury MDM Narrative Medical decision making narrative: 46-year-old male with past medical history of asthma presenting to the ED complaining of left-sided neck pain/spasming since waking this morning. On exam vital signs stable, NAD, no midline spinous tenderness throughout, neck pain reproducible on exam with appreciable neck stiffness/decreased range of motion from pain. Strength intact throughout. Concern for MSK spasming/torticollis vs strain. No evidence of intraoral or ear infection. Low concern for CVA/cervical dissection, meningitis or CVT Plan: Symptomatic treatment, re-evaluate, anticipated DC home Differential Diagnosis Differential diagnosis: Likely cervical radiculopathy, torticollis and strain of neck muscle Medical Records Attestation: I reviewed the patient's medical records. Lab Data Attestation: I reviewed the patient's lab results. Discharge Plan Discharge Clinical Impression: Torticollis Patient Disposition: Home, Self-Care Instructions: Neck Pain (ED) Additional Instructions: Your pain is likely musculoskeletal Flexeril is a muscle relaxer, take at night as it makes you drowsy, do not drive, drink alcohol, or operate machinery while taking it Naproxen as an anti-inflammatory / pain medication, take with food Lidoderm patches are numbing patches, apply to painful area In addition take Tylenol at home If symptoms persist or worsen, pain becomes unbearable, you developed urinary retention or incontinence, or weakness return to the ED Prescriptions: New lidocaine [Lidoderm] 5 % adhesive patch,medicated 1 patch topical DAILY MDD remove after 12 hours PRN (Reason: pain) Qty: 30 0RF Rx Instructions: leave on most painful area for up to 12 hrs naproxen 500 mg tablet 500 mg PO BID PRN (Reason: pain) 10 Days Qty: 20 0RF cyclobenzaprine 5 mg tablet 5 mg PO Q8H PRN (Reason: pain (scale score 7-10)) 5 Days Qty: 14 0RF acetaminophen [Tylophen] 500 mg capsule 500 mg PO Q6H PRN (Reason: fever) Qty: 14 0RF No Action cyclobenzaprine 10 mg tablet 10 mg PO TID PRN (Reason: muscle spasm) Qty: 15 0RF ibuprofen 800 mg tablet 800 mg PO Q8H PRN (Reason: pain) Qty: 20 0RF lidocaine [Lidoderm] 5 % adhesive patch,medicated 1 patch topical DAILY Qty: 15 0RF Rx Instructions: leave on most painful area for up to 12 hrs albuterol sulfate 0.63 mg/3 mL solution for nebulization 0.63 mg inhalation QID PRN (Reason: shortness of breath or wheezing) Qty: 75 0RF azithromycin 250 mg tablet See Rx Instructions .ROUTE .COMPLEX Qty: 6 0RF Rx Instructions: take 500 mg today (day 1), then 250 mg for 4 days (days 2-5) prednisone 20 mg tablet 40 mg PO DAILY 5 Days Qty: 10 0RF (DME) AeroEclipse II Nebulizer [facility] See Rx Instructions .ROUTE .MEDSUPPLY Qty: 1 0RF Rx Instructions: As directed codeine-guaifenesin [Guaifenesin AC] 10-100 mg/5 mL liquid 5 ml PO Q6H PRN (Reason: cold symptoms) Qty: 120 0RF albuterol sulfate 90 mcg/actuation HFA aerosol inhaler 1 inh inhalation QID PRN (Reason: shortness of breath or wheezing) Qty: 8.5 0RF azithromycin [Zithromax Z-Wero] 250 mg tablet See Rx Instructions .ROUTE .COMPLEX Qty: 6 0RF Rx Instructions: For 250 mg dose pack: take 500 mg today (day 1), then 250 mg for 4 days (days 2-5) Referrals: Sonia Spann MD [Primary Care Provider] - 3 days Stand Alone Forms: Work/School Release
== END 2021-11-26 21:25 | disposition home or self-care (01) ==
PROVIDERS: Emergency Provider Emergency Medicine Emergency Medical Services; PCP Internal Medicine
DX: M43.6 Torticollis (principal); M54.2 Cervicalgia; Z79.899 Other long term (current) drug therapy
CPT/HCPCS: 96372; 99283; 99284; J1885

== ENCOUNTER 2022-09-07 09:19 | Emergency (ER) | payer OTHER, SELFPAY ==
--- NOTE | ~2022-09-07 | XR_ITS ---
EXAMINATION: XR CHEST CLINICAL INFORMATION: Cough COMPARISON: 11/19/2021 TECHNIQUE: Frontal view of the chest was obtained. FINDINGS: No significant abnormality is noted involving the heart, lungs, mediastinum, bony thorax or soft tissues. XR/XR chest 1V IMPRESSION: Unremarkable examination.
[2022-09-07 09:26] VITALS: BP 128/81; PULSE 89; RESP 18; TEMP 36.7; O2SAT 98; BMI 34.7
--- NOTE | 2022-09-07 10:06 | ED.URI ---
HPI - URI/Sore Throat General Chief Complaint: Upper Respiratory Symptoms Stated Complaint: Sinus pain/Chest congestion Time Seen by Provider: 09/07/22 09:48 Source: patient Mode of arrival: ambulatory History of Present Illness HPI Narrative: 46 y.o male with a PMHx of asthma presents to the ED c/o productive cough, chest/nasal congestion x4 days. Reports mild SOB & chest discomfort associated with coughing. Also reports dry, pruritic rash to forehead and left neck area x few days. Denies known fevers, chills, abdominal pain, nausea/vomiting, recent travel, or sick contacts. MD elicited complaint: cough, rhinorrhea and nasal congestion Onset (ago): day(s) Related Data Previous Rx's Medication Instructions Recorded cyclobenzaprine 10 mg tablet 10 mg PO TID PRN muscle spasm #15 11/11/20 tabs ibuprofen 800 mg tablet 800 mg PO Q8H PRN pain #20 tabs 11/11/20 lidocaine 5 % topical patch 1 patch topical DAILY #15 ea 11/11/20 (Lidoderm) albuterol sulfate 0.63 mg/3 mL 0.63 mg (3 mL) inhalation QID PRN 05/01/21 solution for nebulization shortness of breath or wheezing #75 mL albuterol sulfate 90 mcg/actuation 1 inh inhalation QID PRN shortness 05/01/21 aerosol inhaler of breath or wheezing #8.5 grams azithromycin 250 mg tablet See Rx Instructions PO .COMPLEX #6 05/01/21 tabs codeine 10 mg-guaifenesin 100 mg/5 5 ml PO Q6H PRN cold symptoms #120 05/01/21 mL oral liquid (Guaifenesin AC) mL nebulizers (AeroEclipse II #1 ea 05/01/21 Nebulizer) prednisone 20 mg tablet 40 mg PO DAILY rash 5 days #10 tabs 05/01/21 azithromycin 250 mg tablet See Rx Instructions PO .COMPLEX #6 11/19/21 (Zithromax Z-Wero) tabs acetaminophen 500 mg capsule 500 mg PO Q6H PRN fever #14 caps 11/26/21 (Tylophen) cyclobenzaprine 5 mg tablet 5 mg PO Q8H PRN pain (scale score 11/26/21 7-10) 5 days #14 tabs lidocaine 5 % topical patch 1 patch topical DAILY PRN pain #30 05/30/22 (Lidoderm) ea naproxen 500 mg tablet 500 mg PO BID PRN pain 10 days #20 11/26/21 tabs acetaminophen 500 mg tablet 500 mg PO Q6H PRN fever or pain 09/07/22 (Tylenol Extra Strength) #14 tabs benzonatate 100 mg capsule 100 mg PO TID PRN cough #14 caps 09/07/22 fluticasone propionate 50 2 spray intranasal DAILY #16 grams 09/07/22 mcg/actuation nasal spray,suspension (Flonase Allergy Relief) hydrocortisone 1 % topical cream 1 appl topical TID PRN rash #28.4 09/07/22 (Anti-Itch (hydrocortisone)) grams Allergies Allergy/AdvReac Type Severity Reaction Status Date / Time Penicillins [PCN] Allergy Unknown UNKNOWN Verified 09/07/22 09:26 Review of Systems Review of Systems: Constitutional: No Fever, No Fatigue, No Malaise ENT/Mouth: No Ear Pain, + Nasal Congestion, +Sinus Pain, No Hoarseness, +Rhinorrhea, No Swallowing Difficulty Eyes: No Vision Changes Cardiovascular: +Chest Pain associated with cough, + SOB, Dyspnea on Exertion, No Palpitations Respiratory: + Cough, + Sputum, No Wheezing, Gastrointestinal: No Nausea, No Vomiting, No Diarrhea, No Constipation, No Abdominal pain= Genitourinary: No Dysuria, No Urinary Frequency, No Hematuria, No Urinary Incontinence/retention, Musculoskeletal: No joint pain, No Myalgias, No Joint Swelling Skin: No Skin Lesions, + rash Neuro: No Weakness, No Numbness, No Paresthesias, No Loss of Consciousness, No Dizziness, No Headache Yes all other systems are reviewed and are negative Constitutional: Constitutional: Reports as per [facility] Past Medical History Attestation statement: The following information was validated with the patient. Medical History Asthma No known health problems Sinus infection Social History Social History Advance Directives: No Advance Directives Information Provided: No Physical Exam Vital Signs: Vital Signs: Last Vital Signs Temp 98.1 F 09/07/22 09:26 Pulse 89 09/07/22 09:26 Resp 18 09/07/22 09:26 BP 128/81 09/07/22 09:26 Pulse Ox 98 09/07/22 09:26 O2 Del Method 09/07/22 09:26 BMI result Body Mass Index 34.7 Const: General: cooperative, healthy appearing, comfortable and no acute distress Orientation/consciousness: patient oriented x3 Limitations: no limitations HEENT: Other: dry patchy rash to left upper neck/occipital area, no scaling, no erythema, pustules or drainage Head: Yes normal to inspection and Yes atraumatic Ears: hearing grossly normal bilaterally, external ears normal and TM's normal bilaterally General nose exam: Normal external nose present and Nasal discharge present Face and sinus: Yes normal facial exam Mouth: Normal oral and palatal mucosa present Throat: Yes posterior oropharynx normal, Yes tonsils normal, Yes uvula midline, No peritonsillar mass, No uvula laterally displaced and No uvular edema Eyes: General: appearance normal, both eyes and all related structures Pupils: Equal, round and reactive pupils present EOM: EOMs intact bilaterally Neck: Neck: Yes normal visual inspection and Yes no meningeal signs Resp: Effort & Inspection: normal respiratory effort and no respiratory distress Auscultation: clear to auscultation bilaterally, no crackles, no rales, no rhonchi and no wheezes Cardio: Rate: regular rate Heart sounds: S1 normal heart sound present and S2 normal heart sound present GI: Inspection: Yes normal to inspection Skin: Wounds: no wounds Neuro: General: patient oriented x3, tone normal and no meningeal signs Cranial nerves: Yes Equal, round and reactive pupils present Gait exam (Neuro): Normal gait present Extrem: General: Yes normal to inspection, Yes no pedal edema and Yes no calf tenderness Course Course Course Narrative: -COVID-19/influenza/RSV negative. -official x-ray read pending, on review my interpretation appears unremarkable. Results discussed with patient including worrisome signs and symptoms and strict return precautions, and when to return to the emergency department. They verbalized understanding and feel safe for discharge at this time. Medications Administered Discontinued Medications Generic Name Dose Route Start Last Admin Trade Name Freq PRN Reason Stop Dose Admin Albuterol Sulfate 2 puff 09/07/22 10:48 09/07/22 11:08 Albuterol Sulfate 90 Mcg 8 Gm Inhaler INHALE 09/07/22 10:49 2 puff ONCE ONE Administration Benzonatate 200 mg 09/07/22 10:48 09/07/22 11:08 Benzonatate 100 Mg Capsule PO 09/07/22 10:49 200 mg ONCE ONE Administration Medical Decision Making Medical Decision Making [facility] Narrative: 46 y.o male with a PMHx of asthma presents to the ED c/o productive cough, chest/nasal congestion x4 days. Reports mild SOB & chest discomfort associated with coughing. Also reports dry, pruritic rash to forehead and left neck area x few days. On exam patient is well-appearing in NAD, vital signs stable. Lungs CTA. Uvula midline, no [employer], no pedal edema, rash as noted above. Concern for viral syndrome vs bronchitis vs pneumonia vs asthma vs sinusitis. Low suspicion for ASC, PE. Rash consistent with atopic dermatitis. Lower suspicion for folliculitis/tinea at this time Plan: Covid/flu/RSV pending, CXR, albuterol inhaler, topical hydrocortisone Please refer to course for remaining clinical decision making, interpretation of labs/imaging results, and discussions with consultants and/or family members. Differential Diagnosis Differential Diagnoses: The differential diagnosis associated with the presentation includes As above Lab Data [facility] Lab Attestation statement: I reviewed the patient's lab results. Labs: Lab Results 09/07/22 Range/Units 09:29 Influenza Type A (PCR) NEGATIVE (Negative) Influenza Type B (PCR) NEGATIVE (Negative) RSV RNA Qual (PCR) NEGATIVE (Negative) SARS-CoV-2 RNA (RT-PCR) NEGATIVE (Negative) Radiology Impression Discussion of test interpretation with radiology: I have reviewed the radiologist's reading. Discharge Plan Discharge Clinical Impression: Upper respiratory infection, Dermatitis Patient Disposition: Home, Self-Care Instructions: Viral Syndrome (ED), Dermatitis (ED) Additional Instructions: You tested negative for COVID-19, the flu, and RSV. Her x-ray is unremarkable Continue to use albuterol inhaler as needed Tessalon Perles for cough Flonase is a nasal decongestant Topical hydrocortisone should be used on your rash. Avoid application to face, genital region, hands or feet as potentially can discolored skin. If symptoms persist or worsening constant worsening chest pain/shortness breath, fever, rashes worsening return to the ED/follow-up with her PCP Prescriptions: New acetaminophen [Tylenol Extra Strength] 500 mg tablet 500 mg PO Q6H PRN (Reason: fever or pain) Qty: 14 0RF benzonatate 100 mg capsule 100 mg PO TID PRN (Reason: cough) Qty: 14 0RF fluticasone propionate [Flonase Allergy Relief] 50 mcg/actuation spray,suspension 2 spray intranasal DAILY Qty: 16 0RF Rx Instructions: administer into each nostril hydrocortisone [Anti-Itch (HC)] 1 % cream 1 appl topical TID PRN (Reason: rash) Qty: 28.4 0RF No Action cyclobenzaprine 10 mg tablet 10 mg PO TID PRN (Reason: muscle spasm) Qty: 15 0RF ibuprofen 800 mg tablet 800 mg PO Q8H PRN (Reason: pain) Qty: 20 0RF lidocaine [Lidoderm] 5 % adhesive patch,medicated 1 patch topical DAILY Qty: 15 0RF Rx Instructions: leave on most painful area for up to 12 hrs albuterol sulfate 0.63 mg/3 mL solution for nebulization 0.63 mg inhalation QID PRN (Reason: shortness of breath or wheezing) Qty: 75 0RF azithromycin 250 mg tablet See Rx Instructions .ROUTE .COMPLEX Qty: 6 0RF Rx Instructions: take 500 mg today (day 1), then 250 mg for 4 days (days 2-5) prednisone 20 mg tablet 40 mg PO DAILY 5 Days Qty: 10 0RF (DME) AeroEclipse II Nebulizer [facility] [place] See Rx Instructions .ROUTE .MEDSUPPLY Qty: 1 0RF Rx Instructions: As directed codeine-guaifenesin [Guaifenesin AC] 10-100 mg/5 mL liquid 5 ml PO Q6H PRN (Reason: cold symptoms) Qty: 120 0RF albuterol sulfate 90 mcg/actuation HFA aerosol inhaler 1 inh inhalation QID PRN (Reason: shortness of breath or wheezing) Qty: 8.5 0RF lidocaine [Lidoderm] 5 % adhesive patch,medicated 1 patch topical DAILY MDD remove after 12 hours PRN (Reason: pain) Qty: 30 0RF Rx Instructions: leave on most painful area for up to 12 hrs naproxen 500 mg tablet 500 mg PO BID PRN (Reason: pain) 10 Days Qty: 20 0RF cyclobenzaprine 5 mg tablet 5 mg PO Q8H PRN (Reason: pain (scale score 7-10)) 5 Days Qty: 14 0RF acetaminophen [Tylophen] 500 mg capsule 500 mg PO Q6H PRN (Reason: fever) Qty: 14 0RF azithromycin [Zithromax Z-Wero] 250 mg tablet See Rx Instructions .ROUTE .COMPLEX Qty: 6 0RF Rx Instructions: For 250 mg dose pack: take 500 mg today (day 1), then 250 mg for 4 days (days 2-5) Referrals: Physician,None [Primary Care Provider] - 5 days Stand Alone Forms: Work/School Release Discharge Date/Time: 09/07/22 12:17
[2022-09-07 10:39] LABS: Influenza A PCR NEGATIVE (Negative); Influenza B PCR NEGATIVE (Negative); Resp Syncy Virus RNA Qual PCR NEGATIVE (Negative); SARS COV2 PCR INHOUSE NEGATIVE (Negative)
[2022-09-07] MEDS: Benzonatate 100 MG CAPSULE 200 MG PO (11:08)
[2022-09-07] MEDS: Albuterol Sulfate 90 MCG 8 GM INHALER 2 PUFF INHALE (11:08)
== END 2022-09-07 12:17 | disposition home or self-care (01) ==
PROVIDERS: Emergency Provider Emergency Medicine
DX: J06.9 Acute upper respiratory infection, unspecified (principal); L30.9 Dermatitis, unspecified; R06.02 Shortness of breath; Z20.822 Contact with and (suspected) exposure to COVID-19; Z20.828 Contact with and (suspected) exposure to other viral communicable diseases
CPT/HCPCS: 0241U; 71045; 99283; 99284

== ENCOUNTER 2022-09-09 03:34 | Emergency (ER) | payer OTHER, SELFPAY ==
--- NOTE | ~2022-09-09 | XR_ITS ---
EXAMINATION: XR CHEST CLINICAL INFORMATION: Evaluate for pneumonia COMPARISON: 09/07/2022 TECHNIQUE: Frontal view of the chest was obtained. FINDINGS: Bronchial wall thickening suspected with subtle streaky opacities in the lower lobes bilaterally. No pleural effusion or pneumothorax. Normal heart size and pulmonary vascularity. XR/XR chest 1V IMPRESSION: Mild bronchial thickening suggestive of bronchitis. Bilateral lower lobe atelectatic changes
[2022-09-09 03:41] VITALS: BP 140/82; PULSE 100; RESP 18; TEMP 37.4; O2SAT 95; BMI 34.7
--- NOTE | 2022-09-09 04:07 | ED_ITS ---
HPI - General Adult General Chief complaint: General Medical Stated complaint: Upper Respiratory issues Time Seen by Provider: 09/09/22 03:59 Source: patient Mode of arrival: ambulatory Limitations: no limitations History of Present Illness HPI narrative: Patient comes to the emergency room complaining of congestion, chills. Patient states that he was seen here 2 days ago he is not getting any better. Patient d enies chest pain or shortness of breath. Related Data Previous Rx's Medication Instructions Recorded cyclobenzaprine 10 mg tablet 10 mg PO TID PRN muscle spasm #15 11/11/20 tabs ibuprofen 800 mg tablet 800 mg PO Q8H PRN pain #20 tabs 11/11/20 lidocaine 5 % topical patch 1 patch topical DAILY #15 ea 11/11/20 (Lidoderm) albuterol sulfate 0.63 mg/3 mL 0.63 mg (3 mL) inhalation QID PRN 05/01/21 solution for nebulization shortness of breath or wheezing #75 mL albuterol sulfate 90 mcg/actuation 1 inh inhalation QID PRN shortness 05/01/21 aerosol inhaler of breath or wheezing #8.5 grams azithromycin 250 mg tablet See Rx Instructions PO .COMPLEX #6 05/01/21 tabs codeine 10 mg-guaifenesin 100 mg/5 5 ml PO Q6H PRN cold symptoms #120 05/01/21 mL oral liquid (Guaifenesin AC) mL nebulizers (AeroEclipse II #1 ea 05/01/21 Nebulizer) prednisone 20 mg tablet 40 mg PO DAILY rash 5 days #10 tabs 05/01/21 azithromycin 250 mg tablet See Rx Instructions PO .COMPLEX #6 11/19/21 (Zithromax Z-Wero) tabs acetaminophen 500 mg capsule 500 mg PO Q6H PRN fever #14 caps 11/26/21 (Tylophen) cyclobenzaprine 5 mg tablet 5 mg PO Q8H PRN pain (scale score 11/26/21 7-10) 5 days #14 tabs lidocaine 5 % topical patch 1 patch topical DAILY PRN pain #30 11/26/21 (Lidoderm) ea naproxen 500 mg tablet 500 mg PO BID PRN pain 10 days #20 11/26/21 tabs acetaminophen 500 mg tablet 500 mg PO Q6H PRN fever or pain 03/11/23 (Tylenol Extra Strength) #14 tabs benzonatate 100 mg capsule 100 mg PO TID PRN cough #14 caps 09/07/22 fluticasone propionate 50 2 spray intranasal DAILY #16 grams 09/07/22 mcg/actuation nasal spray,suspension (Flonase Allergy Relief) hydrocortisone 1 % topical cream 1 appl topical TID PRN rash #28.4 09/07/22 (Anti-Itch (hydrocortisone)) grams albuterol sulfate 90 mcg/actuation 2 puff inhalation Q4-6H PRN 09/09/22 aerosol inhaler shortness of breath or wheezing #8.5 grams prednisone 50 mg tablet 50 mg PO DAILY #4 tabs 09/09/22 Allergies Allergy/AdvReac Type Severity Reaction Status Date / Time Penicillins [PCN] Allergy Unknown UNKNOWN Verified 09/07/22 09:26 Review of Systems Review of Systems: Constitutional : No Weight loss, No Fever, No Chills, No Night Sweats, No Fatigue, No Malaise ENT/Mouth : No Hearing loss, No Ear Pain, complaining of Nasal Congestion, No Sinus Pain, No Hoarseness, No sore throat, No Rhinorrhea, No Swallowing Difficulty Eyes: No Eye Pain, No Swelling, No Redness, No Foreign Body, No Discharge, No Vision Changes Cardiovascular : No Chest Pain, No SOB, No Dyspnea on Exertion, No Orthopnea, No Edema, No Palpitations Respiratory : Complaining of Cough, No Sputum, No Wheezing, No Smoke Exposure, No Dyspnea Gastrointestinal : No Nausea, No Vomiting, No Diarrhea, No Constipation, No abdo alyson Pain, No Hematochezia, No Melena Genitourinary : no irregular bleeding, No Dysuria, No Urinary Frequency, No Hematuria, No Urinary Incontinence, No Urgency, No Flank Pain, No Urinary Flow Changes, No Hesitancy Musculoskeletal : No joint pain, No Myalgias, No Joint Swelling Skin : No Skin Lesions, No rash Neuro : No Weakness, No Numbness, No Paresthesias, No Loss of Consciousness, No Dizziness, No Headache Psych : No Anxiety/Panic, No Depression, No SI/HI/AH/VH, No Social Issues, Heme/Lymph: No Bruising, No Bleeding,No Lymphadenopathy Endocrine : No Polyuria, No Polydipsia, No Temperature Intolerance PMFSH Past Medical History Medical History Asthma No known health problems Sinus infection Social History Social History Alcohol intake: never Smoked in Last 30 Days: No Use of substances other than those prescribed or required for medical reasons: No Advance Directives: No Advance Directives Information Provided: Yes Physical Exam ED Vital Signs: Vital Signs - 24 hr 09/09/22 03:41 Temperature 99.3 F Pulse Rate 100 Respiratory Rate 18 Blood Pressure 140/82 H Pulse Oximetry 95 Oxygen Delivery Method Room Air BMI result Body Mass Index 34.7 Const Other: Appearance: Alert. Oriented X3. No acute distress. Eyes: Pupils equal, round and reactive to light. ENT: Pharynx normal. Neck: Normal inspection. Neck supple. No lymph nodes noted. No crepitus CVS: Normal heart rate and rhythm. Pulses normal. Normal S1 and S2 Respiratory: No respiratory distress. Very mild occasional bilateral Wheezing. No rales Abdomen: Soft and nontender. No rigidity. No distention. Skin: Skin warm and dry. Normal skin color. Normal skin turgor. Extremities: No lower extremity edema. No Lacerations. No Rash Neuro: Oriented X 3. No motor deficit. No sensory deficit. Moving all extremities. No slurred speech. CN 2 through 12 grossly intact Psych: calm, cooperative, normal affect Course Course Course Narrative: -chest x-ray pending. Patient had chest x-ray 2 days ago, it was normal -patient received 1 dose of p.o. prednisone and albuterol inhaler. Patient has very mild wheezing. -COVID test pending Medications Administered Discontinued Medications Generic Name Dose Route Start Last Admin Trade Name Freq PRN Reason Stop Dose Admin Albuterol Sulfate 2 puff 09/09/22 04:06 09/09/22 04:16 Albuterol Sulfate 90 Mcg 8 Gm Inhaler INHALE 09/09/22 04:07 2 puff ONCE ONE Administration Prednisone 50 mg 09/09/22 04:06 09/09/22 04:16 Prednisone 10 Mg Tablet PO 09/09/22 04:07 50 mg ONCE ONE Administration Medical Decision Making Medical Decision Making MDM Narrative: -chest x-ray shows streaky opacities. Likely viral. -discussed with patient that the coughing will last couple of weeks. Differential Diagnosis Differential Diagnoses: The differential diagnosis associated with the presentation includes (Bronchitis, pneumonia, asthma) Lab Data MDM Lab Attestation statement: I reviewed the patient's lab results. Labs: Lab Results 09/09/22 09/09/22 Range/Units 04:06 04:06 COVID-19 (ELIEZER) Negative (Negative) COVID-19 Clin Com See Note Influenza Type A (HEBER) Negative (Negative) Influenza Type B (HEBER) Negative (Negative) Influenza A & B Note See Note Independent Interpretation I performed an independent interpretation of an: Plain X-Ray (My interpretation of x-ray: No infiltrates) Radiology Impression Discussion of test interpretation with radiology: I have reviewed the radiologist's reading. Radiologist Impression: FINDINGS: Bronchial wall thickening suspected with subtle streaky opacities in the lower lobes bilaterally. No pleural effusion or pneumothorax. Normal heart size and pulmonary vascularity. XR/XR chest 1V IMPRESSION: Mild bronchial thickening suggestive of bronchitis. Bilateral lower lobe atelectatic changes Discharge Plan Discharge Clinical Impression: Acute viral bronchitis Patient Disposition: Home, Self-Care Instructions: Acute Bronchitis (ED) Additional Instructions: Please follow-up with your primary care physician tomorrow. If you have any worsening or new symptoms, please return to the emergency room or call 911 Prescriptions: New albuterol sulfate 90 mcg/actuation HFA aerosol inhaler 2 puff inhalation Q4-6H PRN (Reason: shortness of breath or wheezing) Qty: 8.5 0RF prednisone 50 mg tablet 50 mg PO DAILY Qty: 4 0RF No Action cyclobenzaprine 10 mg tablet 10 mg PO TID PRN (Reason: muscle spasm) Qty: 15 0RF ibuprofen 800 mg tablet 800 mg PO Q8H PRN (Reason: pain) Qty: 20 0RF lidocaine [Lidoderm] 5 % adhesive patch,medicated 1 patch topical DAILY Qty: 15 0RF Rx Instructions: leave on most painful area for up to 12 hrs albuterol sulfate 0.63 mg/3 mL solution for nebulization 0.63 mg inhalation QID PRN (Reason: shortness of breath or wheezing) Qty: 75 0RF azithromycin 250 mg tablet See Rx Instructions .ROUTE .COMPLEX Qty: 6 0RF Rx Instructions: take 500 mg today (day 1), then 250 mg for 4 days (days 2-5) prednisone 20 mg tablet 40 mg PO DAILY 5 Days Qty: 10 0RF (DME) AeroEclipse II Nebulizer [facility] See Rx Instructions .ROUTE .MEDSUPPLY Qty: 1 0RF Rx Instructions: As directed codeine-guaifenesin [Guaifenesin AC] 10-100 mg/5 mL liquid 5 ml PO Q6H PRN (Reason: cold symptoms) Qty: 120 0RF albuterol sulfate 90 mcg/actuation HFA aerosol inhaler 1 inh inhalation QID PRN (Reason: shortness of breath or wheezing) Qty: 8.5 0RF lidocaine [Lidoderm] 5 % adhesive patch,medicated 1 patch topical DAILY MDD remove after 12 hours PRN (Reason: pain) Qty: 30 0RF Rx Instructions: leave on most painful area for up to 12 hrs naproxen 500 mg tablet 500 mg PO BID PRN (Reason: pain) 10 Days Qty: 20 0RF cyclobenzaprine 5 mg tablet 5 mg PO Q8H PRN (Reason: pain (scale score 7-10)) 5 Days Qty: 14 0RF acetaminophen [Tylophen] 500 mg capsule 500 mg PO Q6H PRN (Reason: fever) Qty: 14 0RF azithromycin [Zithromax Z-Wero] 250 mg tablet See Rx Instructions .ROUTE .COMPLEX Qty: 6 0RF Rx Instructions: For 250 mg dose pack: take 500 mg today (day 1), then 250 mg for 4 days (days 2-5) acetaminophen [Tylenol Extra Strength] 500 mg tablet 500 mg PO Q6H PRN (Reason: fever or pain) Qty: 14 0RF benzonatate 100 mg capsule 100 mg PO TID PRN (Reason: cough) Qty: 14 0RF fluticasone propionate [Flonase Allergy Relief] 50 mcg/actuation spray,suspension 2 spray intranasal DAILY Qty: 16 0RF Rx Instructions: administer into each nostril hydrocortisone [Anti-Itch (HC)] 1 % cream 1 appl topical TID PRN (Reason: rash) Qty: 28.4 0RF
[2022-09-09] MEDS: predniSONE 10 MG TABLET 50 MG PO (04:16)
[2022-09-09] MEDS: Albuterol Sulfate 90 MCG 8 GM INHALER 2 PUFF INHALE (04:16)
[2022-09-09 04:28] LABS: COVID-19 Test Negative (Negative); IDNOW Serial# 16C4AD1C; IDNOW Serial# BCCEAD1C; Influenza A Negative (Negative); Influenza B2 Negative (Negative)
== END 2022-09-09 05:15 | disposition home or self-care (01) ==
PROVIDERS: Emergency Provider Emergency Medicine
DX: J20.8 Acute bronchitis due to other specified organisms (principal); Z20.822 Contact with and (suspected) exposure to COVID-19; Z20.828 Contact with and (suspected) exposure to other viral communicable diseases; Z79.899 Other long term (current) drug therapy
CPT/HCPCS: 71045; 87502; 87635; 99283; 99284

== ENCOUNTER 2022-09-14 10:03 | Emergency (ER) | payer OTHER, SELFPAY ==
--- NOTE | ~2022-09-14 | XR_ITS ---
EXAMINATION: XR CHEST CLINICAL INFORMATION: Shortness of breath. COMPARISON: Most recent chest radiograph dated 09/09/2022. TECHNIQUE: Frontal view of the chest was obtained. FINDINGS: The lungs are clear. The cardiomediastinal silhouette is normal in size. There is no pleural effusion or pneumothorax. No acute osseous abnormality. XR/XR chest 1V IMPRESSION: No acute cardiopulmonary findings.
[2022-09-14 10:06] VITALS: BP 133/73; PULSE 93; RESP 17; TEMP 36.2; O2SAT 100; BMI 35.5
--- NOTE | 2022-09-14 10:28 | ED_ITS ---
HPI - General Adult General Chief complaint: General Medical Stated complaint: low O2, numbness in legs Time Seen by Provider: 09/14/22 10:14 Source: patient Mode of arrival: ambulatory Limitations: no limitations History of Present Illness HPI narrative: 46-year-old male with history of asthma presented to the emergency department for shortness of breath and productive cough. Patient was seen in the emergency department this week twice for similar symptoms patient was started on bronchodilator and prednisone because patient started to develop hallucination from the prednisone only took 2 tablets and discontinue the prednisone. Came in today for increased shortness of breath and increased coughing with frequent use of his inhaler at home. No fever, no chills, no sick contacts, no recent travel, no recent prolonged immobilization, no lower extremities swelling. Related Data Previous Rx's Medication Instructions Recorded cyclobenzaprine 10 mg tablet 10 mg PO TID PRN muscle spasm #15 11/11/20 tabs ibuprofen 800 mg tablet 800 mg PO Q8H PRN pain #20 tabs 11/11/20 lidocaine 5 % topical patch 1 patch topical DAILY #15 ea 11/11/20 (Lidoderm) albuterol sulfate 0.63 mg/3 mL 0.63 mg (3 mL) inhalation QID PRN 05/01/21 solution for nebulization shortness of breath or wheezing #75 mL albuterol sulfate 90 mcg/actuation 1 inh inhalation QID PRN shortness 05/01/21 aerosol inhaler of breath or wheezing #8.5 grams azithromycin 250 mg tablet See Rx Instructions PO .COMPLEX #6 05/01/21 tabs codeine 10 mg-guaifenesin 100 mg/5 5 ml PO Q6H PRN cold symptoms #120 05/01/21 mL oral liquid (Guaifenesin AC) mL nebulizers (AeroEclipse II #1 ea 05/01/21 Nebulizer) prednisone 20 mg tablet 40 mg PO DAILY rash 5 days #10 tabs 05/01/21 azithromycin 250 mg tablet See Rx Instructions PO .COMPLEX #6 11/19/21 (Zithromax Z-Wero) tabs acetaminophen 500 mg capsule 500 mg PO Q6H PRN fever #14 caps 11/26/21 (Tylophen) cyclobenzaprine 5 mg tablet 5 mg PO Q8H PRN pain (scale score 11/26/21 7-10) 5 days #14 tabs lidocaine 5 % topical patch 1 patch topical DAILY PRN pain #30 11/26/21 (Lidoderm) ea naproxen 500 mg tablet 500 mg PO BID PRN pain 10 days #20 11/26/21 tabs acetaminophen 500 mg tablet 500 mg PO Q6H PRN fever or pain 09/07/22 (Tylenol Extra Strength) #14 tabs benzonatate 100 mg capsule 100 mg PO TID PRN cough #14 caps 09/07/22 fluticasone propionate 50 2 spray intranasal DAILY #16 grams 09/07/22 mcg/actuation nasal spray,suspension (Flonase Allergy Relief) hydrocortisone 1 % topical cream 1 appl topical TID PRN rash #28.4 09/07/22 (Anti-Itch (hydrocortisone)) grams albuterol sulfate 90 mcg/actuation 2 puff inhalation Q4-6H PRN 09/09/22 aerosol inhaler shortness of breath or wheezing #8.5 grams prednisone 50 mg tablet 50 mg PO DAILY #4 tabs 09/09/22 albuterol sulfate 90 mcg/actuation 1 inh inhalation QID PRN shortness 09/14/22 aerosol inhaler of breath or wheezing #8.5 grams azithromycin 250 mg tablet See Rx Instructions PO .COMPLEX #6 09/14/22 (Zithromax Z-Wero) tabs Allergies Allergy/AdvReac Type Severity Reaction Status Date / Time Penicillins [PCN] Allergy Unknown UNKNOWN Verified 09/07/22 09:26 Review of Systems Review of Systems: All other systems are reviewed and are negative Constitutional: Reports as per HPI and Reports no additional constitutional complaints Eyes: Reports as per HPI and Reports no additional eye complaints Reports system reviewed and no additional complaints, except as documented Cardiovascular: Reports as per HPI and Reports no additional cardiovascular complaints Respiratory: Reports as per HPI and Reports no additional respiratory complaints Gastrointestinal: Reports as per HPI and Reports no additional gastrointestinal complaints Genitourinary: Reports no additional female genitourinary complaints Musculoskeletal: Reports no additional musculoskeletal complaints Skin/Breast: Reports system reviewed and no additional complaints, except as docu Psychiatric: Reports no additional psychiatric complaints Endocrine: Reports no additional endocrine complaints Hematologic/Lymphatic: Reports no additional hematologic/lymphatic complaints Allergic/Immunologic: Reports no additional allergic/immunologic complaints Reports system reviewed and no additional complaints, except as documented and Reports Abnormal speech present [facility] Past Medical History Medical History Asthma No known health problems Sinus infection Social History Social History Alcohol intake: never Smoked in Last 30 Days: No Use of substances other than those prescribed or required for medical reasons: No Advance Directives: No Advance Directives Information Provided: Yes Physical Exam ED Vital Signs: Vital Signs - 24 hr 09/14/22 10:06 09/14/22 10:36 09/14/22 11:00 Temperature 97.2 F 99.5 F Pulse Rate 93 85 78 Respiratory Rate 17 20 18 Blood Pressure 133/73 121/91 H Pulse Oximetry 100 Oxygen Delivery Method Room Air Room Air 09/14/22 12:30 Temperature 98.4 F Pulse Rate 81 Respiratory Rate 18 Blood Pressure 133/76 Pulse Oximetry 97 Oxygen Delivery Method Room Air BMI result Body Mass Index 35.5 Vital signs have been reviewed as appeared to be correct. Blood pressure normal. Heart rate normal. Respiration rate normal. Temperature normal. Oxygen saturation normal. Appearance: Alert. Oriented X3. No acute distress. Head: Normal external exam. Normocephalic. Atraumatic. No Perez signs noted. No raccoon eyes noted Eyes: PERRLA. EOMI. Conjunctiva and sclera normal. Eyelids normal. ENT: TM's Normal. Pharynx normal. Uvula midline. Moist mucous membranes. No trismus noted. No drooling noted. No muffled voice noted. Tenderness to percussion over bilateral maxillary sinuses. Neck: Normal inspection. Neck supple. FROM. No adenopathy. Thyroid Normal. No meningeal signs. No neck mass noted. CVS: Normal heart rate and rhythm. Heart sound normal. No murmurs noted. Pulses normal throughout. Respiratory: No respiratory distress. Painless inspiration. Breath sounds normal. Bilateral diffuse mild expiratory wheezing, prolonged expiration. Chest nontender. No accessory muscle usage noted or decreased air movement noted. Abdomen: Soft and nontender. Bowel sounds normal in all 4 quadrants. No dis tention noted. No organomegaly noted. No visible injury noted. Back: No CVA tenderness. Full range of motion noted. Skin: Skin warm and dry. Normal skin color. Normal skin turgor. No rashes/les ions/lacerations noted. Extremities: No lower extremity edema. Extremities exhibit normal range of motion. Extremities nontender. Neuro: Oriented X 3. Cranial nerve exam: II-XII are grossly intact No motor deficit. No sensory deficit. Reflexes normal. Course Course Course Narrative: 46-year-old male came in for evaluation of shortness of breath. Patient's history and clinical exam today is consistent with acute bronchitis with question of acute sinusitis. Will start the patient on Z-Wero and bronchodilator. Medications Administered Discontinued Medications Generic Name Dose Route Start Last Admin Trade Name Freq PRN Reason Stop Dose Admin Albuterol Sulfate 5 mg 09/14/22 10:09/14/22 10:57 Albuterol Sulfate (0.083%) 2.5 Mg/3 Ml Vial.Neb INHALE 09/14/22 10:24 5 mg ONCE ONE Administration Azithromycin 500 mg 09/14/22 10:09/14/22 10:38 Azithromycin 500 Mg Tablet PO 09/14/22 10:24 500 mg ONCE ONE Administration Medical Decision Making Differential Diagnosis Differential Diagnoses: The differential diagnosis associated with the presentation includes (Pneumonia, PE, ACS, bronchitis, pneumothorax.) Lab Data MDM Lab Attestation statement: I reviewed the patient's lab results. 09/14/22 11:10 09/14/22 11:10 Labs: Lab Results 09/14/22 09/14/22 09/14/22 Range/Units 11:07 11:10 11:10 WBC 8.6 (4.8-10.8) X10*3/uL RBC 5.22 (4.60-5.80) X10*6/uL Hgb 15.8 (14.0-18.0) g/dl Hct 45.7 (42.0-52.0) % MCV 87.5 (80.0-98.0) fL MCH 30.3 (27.0-33.0) pg MCHC 34.6 (31.0-36.0) g/dl RDW 12.3 (11.0-16.0) % Plt Count 261 (160-400) X10*3/uL MPV 10.6 (9.4-12.4) fL Immature Gran % (Auto) 0.5 H (0.0-0.4) % Neut % (Auto) 59.9 (45-73) % Lymph % (Auto) 32.0 (20-40) % [place] % (Auto) 5.4 (2-11) % Eos % (Auto) 1.8 (0-4) % Baso % (Auto) 0.4 (0-2) % Lymph # (Auto) 2.7 (1.2-4.9) X10*3/uL [place] # (Auto) 0.5 (0.1-1.2) X10*3/uL Eos # (Auto) 0.2 (0.0-0.4) X10*3/uL Baso # (Auto) 0.0 (0.0-0.2) X10*3/uL Abs Immat Gran (auto) 0.04 H (0.00-0.03) X10*3/uL Absolute Neuts (auto) 5.1 (2.0-8.3) x10*3/uL Absolute Nucleated RBC 0.000 (0.0-0.012) X10*3/uL Nucleated RBC % (auto) 0.0 (0.0-0.2) /100WBC D-Dimer High Sensitivty NG/ML Sodium 140 (135-145) mmol/L Potassium 3.5 (3.3-5.1) mmol/L Chloride 106 (96-108) mmol/L Carbon Dioxide 23 (22-29) mmol/L Anion Gap 15 (12-20) BUN 13 (9-16) mg/dL Creatinine 1.19 (0.5-1.4) mg/dL Estim Creat Clear Calc 86.7 Estimated GFR > 60 Random Glucose 99 (60-115) mg/dL Calcium 9.2 (8.4-10.2) mg/dL Troponin I High Sens (<3.5-35.0) ng/L Influenza Type A (PCR) NEGATIVE (Negative) Influenza Type B (PCR) NEGATIVE (Negative) RSV RNA Qual (PCR) NEGATIVE (Negative) SARS-CoV-2 RNA (RT-PCR) NEGATIVE (Negative) 09/14/22 09/14/22 Range/Units 11:10 11:10 WBC (4.8-10.8) X10*3/uL RBC (4.60-5.80) X10*6/uL Hgb (14.0-18.0) g/dl Hct (42.0-52.0) % MCV (80.0-98.0) fL MCH (27.0-33.0) pg MCHC (31.0-36.0) g/dl RDW (11.0-16.0) % Plt Count (160-400) X10*3/uL MPV (9.4-12.4) fL Immature Gran % (Auto) (0.0-0.4) % Neut % (Auto) (45-73) % Lymph % (Auto) (20-40) % [place] % (Auto) (2-11) % Eos % (Auto) (0-4) % Baso % (Auto) (0-2) % Lymph # (Auto) (1.2-4.9) X10*3/uL [place] # (Auto) (0.1-1.2) X10*3/uL Eos # (Auto) (0.0-0.4) X10*3/uL Baso # (Auto) (0.0-0.2) X10*3/uL Abs Immat Gran (auto) (0.00-0.03) X10*3/uL Absolute Neuts (auto) (2.0-8.3) x10*3/uL Absolute Nucleated RBC (0.0-0.012) X10*3/uL Nucleated RBC % (auto) (0.0-0.2) /100WBC D-Dimer High Sensitivty < 150 NG/ML Sodium (135-145) mmol/L Potassium (3.3-5.1) mmol/L Chloride (96-108) mmol/L Carbon Dioxide (22-29) mmol/L Anion Gap (12-20) BUN (9-16) mg/dL Creatinine (0.5-1.4) mg/dL Estim Creat Clear Calc Estimated GFR Random Glucose (60-115) mg/dL Calcium (8.4-10.2) mg/dL Troponin I High Sens < 3.5 (<3.5-35.0) ng/L Influenza Type A (PCR) (Negative) Influenza Type B (PCR) (Negative) RSV RNA Qual (PCR) (Negative) SARS-CoV-2 RNA (RT-PCR) (Negative) Independent Interpretation I performed an independent interpretation of an: Plain X-Ray (Chest: No acute intrathoracic pathology.) Radiology Impression Discussion of test interpretation with radiology: I have reviewed the radiologist's reading. Discharge Plan Discharge Clinical Impression: Acute bronchitis, Acute sinusitis Patient Disposition: Home, Self-Care Instructions: Sinusitis (ED) Prescriptions: New azithromycin [Zithromax Z-Wero] 250 mg tablet See Rx Instructions .ROUTE .COMPLEX Qty: 6 0RF Rx Instructions: For 250 mg dose pack: take 500 mg today (day 1), then 250 mg for 4 days (days 2-5) albuterol sulfate 90 mcg/actuation HFA aerosol inhaler 1 inh inhalation QID PRN (Reason: shortness of breath or wheezing) Qty: 8.5 0RF No Action cyclobenzaprine 10 mg tablet 10 mg PO TID PRN (Reason: muscle spasm) Qty: 15 0RF ibuprofen 800 mg tablet 800 mg PO Q8H PRN (Reason: pain) Qty: 20 0RF lidocaine [Lidoderm] 5 % adhesive patch,medicated 1 patch topical DAILY Qty: 15 0RF Rx Instructions: leave on most painful area for up to 12 hrs albuterol sulfate 0.63 mg/3 mL solution for nebulization 0.63 mg inhalation QID PRN (Reason: shortness of breath or wheezing) Qty: 75 0RF azithromycin 250 mg tablet See Rx Instructions .ROUTE .COMPLEX Qty: 6 0RF Rx Instructions: take 500 mg today (day 1), then 250 mg for 4 days (days 2-5) prednisone 20 mg tablet 40 mg PO DAILY 5 Days Qty: 10 0RF (DME) AeroEclipse II Nebulizer [facility] [place] See Rx Instructions .ROUTE .MEDSUPPLY Qty: 1 0RF Rx Instructions: As directed codeine-guaifenesin [Guaifenesin AC] 10-100 mg/5 mL liquid 5 ml PO Q6H PRN (Reason: cold symptoms) Qty: 120 0RF albuterol sulfate 90 mcg/actuation HFA aerosol inhaler 1 inh inhalation QID PRN (Reason: shortness of breath or wheezing) Qty: 8.5 0RF lidocaine [Lidoderm] 5 % adhesive patch,medicated 1 patch topical DAILY MDD remove after 12 hours PRN (Reason: pain) Qty: 30 0RF Rx Instructions: leave on most painful area for up to 12 hrs naproxen 500 mg tablet 500 mg PO BID PRN (Reason: pain) 10 Days Qty: 20 0RF cyclobenzaprine 5 mg tablet 5 mg PO Q8H PRN (Reason: pain (scale score 7-10)) 5 Days Qty: 14 0RF acetaminophen [Tylophen] 500 mg capsule 500 mg PO Q6H PRN (Reason: fever) Qty: 14 0RF albuterol sulfate 90 mcg/actuation HFA aerosol inhaler 2 puff inhalation Q4-6H PRN (Reason: shortness of breath or wheezing) Qty: 8.5 0RF prednisone 50 mg tablet 50 mg PO DAILY Qty: 4 0RF azithromycin [Zithromax Z-Wero] 250 mg tablet See Rx Instructions .ROUTE .COMPLEX Qty: 6 0RF Rx Instructions: For 250 mg dose pack: take 500 mg today (day 1), then 250 mg for 4 days (days 2-5) acetaminophen [Tylenol Extra Strength] 500 mg tablet 500 mg PO Q6H PRN (Reason: fever or pain) Qty: 14 0RF benzonatate 100 mg capsule 100 mg PO TID PRN (Reason: cough) Qty: 14 0RF fluticasone propionate [Flonase Allergy Relief] 50 mcg/actuation spray,coelho spension 2 spray intranasal DAILY Qty: 16 0RF Rx Instructions: administer into each nostril hydrocortisone [Anti-Itch (HC)] 1 % cream 1 appl topical TID PRN (Reason: rash) Qty: 28.4 0RF
[2022-09-14 10:36] VITALS: BP 121/91; PULSE 85; RESP 20; TEMP 37.5
[2022-09-14] MEDS: Azithromycin 500 MG TABLET PO (10:38)
[2022-09-14] MEDS: Albuterol Sulfate (0.083%) 2.5 MG/3 ML VIAL.NEB 5 MG INHALE (10:57)
[2022-09-14 11:00] VITALS: PULSE 78; RESP 18; O2SAT 99
[2022-09-14 11:13] LABS: MANUAL DIFF FLAG NO
[2022-09-14 11:17] LABS: Basophils Percent Auto 0.4 % (0-2); Eosinophils Absolute Auto 0.2 X10*3/uL (0.0-0.4); Eosinophils Percent Auto 1.8 % (0-4); Hematocrit 45.7 % (42.0-52.0); Hemoglobin 15.8 g/dl (14.0-18.0); Imm Gran Abs Auto 0.04 X10*3/uL (0.00-0.03); Imm Gran Pct Auto 0.5 % (0.0-0.4); Lymphocytes Absolute Auto 2.7 X10*3/uL (1.2-4.9); Mean Corpuscular HGB Conc 34.6 g/dl (31.0-36.0); Mean Corpuscular Hemoglobin 30.3 pg (27.0-33.0); Mean Corpuscular Volume 87.5 fL (80.0-98.0); Mean Platelet Volume 10.6 fL (9.4-12.4); Monocytes Absolute Auto 0.5 X10*3/uL (0.1-1.2); Monocytes Percent Auto 5.4 % (2-11); Neutrophils Absolute Auto 5.1 x10*3/uL (2.0-8.3); Neutrophils Percent Auto 59.9 % (45-73); Platelet Count 261 X10*3/uL (160-400); Red Blood Count 5.22 X10*6/uL (4.60-5.80); Red Cell Distribution Width 12.3 % (11.0-16.0); White Blood Count 8.6 X10*3/uL (4.8-10.8)
[2022-09-14 11:30] LABS: Anion Gap 15 (12-20); Blood Urea Nitrogen 13 mg/dL (9-16); Calcium 9.2 mg/dL (8.4-10.2); Carbon Dioxide 23 mmol/L (22-29); Chloride 106 mmol/L (96-108); Creatinine Clr Calc Pharmacy 86.7; D Dimer High Sensitivity < 150 NG/ML; Estimated Glomerular Filt Rate > 60; Glucose Random 99 mg/dL (60-115); Potassium 3.5 mmol/L (3.3-5.1); Sodium 140 mmol/L (135-145)
[2022-09-14 11:45] LABS: Troponin-I High Sensitivity < 3.5 ng/L (<3.5-35.0)
[2022-09-14 11:57] LABS: Influenza A PCR NEGATIVE (Negative); Influenza B PCR NEGATIVE (Negative); Resp Syncy Virus RNA Qual PCR NEGATIVE (Negative); SARS COV2 PCR INHOUSE NEGATIVE (Negative)
[2022-09-14 12:30] VITALS: BP 133/76; PULSE 81; RESP 18; TEMP 36.9; O2SAT 97
== END 2022-09-14 12:50 | disposition home or self-care (01) ==
PROVIDERS: Emergency Provider Emergency Medicine
DX: J20.9 Acute bronchitis, unspecified (principal); J01.00 Acute maxillary sinusitis, unspecified; R06.02 Shortness of breath; Z79.899 Other long term (current) drug therapy; Z20.822 Contact with and (suspected) exposure to COVID-19; Z20.828 Contact with and (suspected) exposure to other viral communicable diseases
CPT/HCPCS: 0241U; 36415; 71045; 80048; 84484; 85025; 85379; 94640; 99284

== ENCOUNTER 2023-04-20 04:36 | Emergency (ER) | payer OTHER, SELFPAY ==
[2023-04-20 04:37] VITALS: BP 123/79; PULSE 77; RESP 18; TEMP 36.4; O2SAT 99; BMI 37.1
--- NOTE | 2023-04-20 08:24 | ED_ITS ---
HPI - Ear Problem General Chief complaint: Ear Problems Stated complaint: Ear pain Time Seen by Provider: 04/20/23 08:19 Source: patient Mode of arrival: ambulatory Limitations: no limitations History of Present Illness HPI Narrative: 47 yo male presenting with acute onset of left ear pain that started yesterday. He states it hurts to touch the ear and he did not sleep well last night even after taking ibuprofen. No hearing loss or discharge. No fever, chills, or URI symptoms. MD Complaint: ear pain Location: left ear Duration: constant Severity: moderate Relieving factors: NDAIDs Exacerbating factors: chewing, position of head and palpation Discharge from ear: no Treatment prior to arrival: attempt at ear wax removal Related Data Previous Rx's Medication Instructions Recorded cyclobenzaprine 10 mg tablet 10 mg PO TID PRN muscle spasm #15 11/11/20 tabs ibuprofen 800 mg tablet 800 mg PO Q8H PRN pain #20 tabs 11/11/20 lidocaine 5 % topical patch 1 patch topical DAILY #15 ea 11/11/20 (Lidoderm) albuterol sulfate 0.63 mg/3 mL 0.63 mg (3 mL) inhalation QID PRN 05/01/21 solution for nebulization shortness of breath or wheezing #75 mL albuterol sulfate 90 mcg/actuation 1 inh inhalation QID PRN shortness 05/01/21 aerosol inhaler of breath or wheezing #8.5 grams azithromycin 250 mg tablet See Rx Instructions PO .COMPLEX #6 05/01/21 tabs codeine 10 mg-guaifenesin 100 mg/5 5 ml PO Q6H PRN cold symptoms #120 05/01/21 mL oral liquid (Guaifenesin AC) mL nebulizers (AeroEclipse II #1 ea 05/01/21 Nebulizer) prednisone 20 mg tablet 40 mg (2 x 20 mg) PO DAILY rash 5 05/01/21 days #10 tabs azithromycin 250 mg tablet See Rx Instructions PO .COMPLEX #6 11/19/21 (Zithromax Z-Wero) tabs acetaminophen 500 mg capsule 500 mg PO Q6H PRN fever #14 caps 11/26/21 (Tylophen) cyclobenzaprine 5 mg tablet 5 mg PO Q8H PRN pain (scale score 11/26/21 7-10) 5 days #14 tabs lidocaine 5 % topical patch 1 patch topical DAILY PRN pain #30 11/26/21 (Lidoderm) ea naproxen 500 mg tablet 500 mg PO BID PRN pain 10 days #20 11/26/21 tabs acetaminophen 500 mg tablet 500 mg PO Q6H PRN fever or pain 09/07/22 (Tylenol Extra Strength) #14 tabs benzonatate 100 mg capsule 100 mg PO TID PRN cough #14 caps 09/07/22 fluticasone propionate 50 2 spray intranasal DAILY #16 grams 09/07/22 mcg/actuation nasal spray,suspension (Flonase Allergy Relief) hydrocortisone 1 % topical cream 1 appl topical TID PRN rash #28.4 09/07/22 (Anti-Itch (hydrocortisone)) grams albuterol sulfate 90 mcg/actuation 2 puff inhalation Q4-6H PRN 09/09/22 aerosol inhaler shortness of breath or wheezing #8.5 grams prednisone 50 mg tablet 50 mg PO DAILY #4 tabs 09/09/22 albuterol sulfate 90 mcg/actuation 1 inh inhalation QID PRN shortness 09/14/22 aerosol inhaler of breath or wheezing #8.5 grams azithromycin 250 mg tablet See Rx Instructions PO .COMPLEX #6 09/14/22 (Zithromax Z-Wero) tabs levofloxacin 500 mg tablet 500 mg PO DAILY 7 days #7 tabs 04/20/23 ofloxacin 0.3 % ear drops 10 drp otic (ears) DAILY 7 days 04/20/23 #10 mL Allergies Allergy/AdvReac Type Severity Reaction Status Date / Time Penicillins [PCN] Allergy Unknown UNKNOWN Verified 04/20/23 04:40 Review of Systems Review of Systems: Yes all other systems are reviewed and are negative PMFSH Past Medical History Medical History Asthma No known health problems Sinus infection Social History Social History Alcohol intake: never Advance Directives: No Physical Exam Vital Signs: Vital Signs: Last Vital Signs Temp 97.5 F 04/20/23 04:37 Pulse 77 04/20/23 04:37 Resp 18 04/20/23 04:37 BP 123/79 04/20/23 04:37 Pulse Ox 99 04/20/23 04:37 O2 Del Method Room Air 04/20/23 04:37 BMI result Body Mass Index 37.1 Appearance: Alert. Oriented X3. No acute distress. HEENT: normocephalic, atraumatic. normal inspection of right EAC and TM. Left external ear with some mild swelling of the EAC, internally there is diffuse swelling w/ ertyhema and purulent discharge, left TM w/ erythema and effusion, bulging. hearing grossly zoe. normal inspection of nose, and pharynx CVS: Normal heart rate and rhythm. Pulses normal. Respiratory: No respiratory distress. Skin: Skin warm and dry. Normal skin color. Normal skin turgor. No rashes. Extremities: normal inspection x4 Neuro: Oriented X 3. No motor deficit. No sensory deficit. Medical Decision Making Medical Decision Making MDM Narrative: 47 yo male presenting with left ear pain x1 day. Exam c/w both AOM and otitis externa. will treat with both topical and oral abx. PCN allergic. no other URI symptoms. will defer covid and flu testing today stable for d/c home Differential Diagnosis Differential Diagnoses: The differential diagnosis associated with the presentation includes AOM, otitis externa, mastoiditis, URI External Record Review External record reviewed: Outpatient record and Prior outpatient labs Prescription Management I considered prescription management with: Pain Medication and Antibiotic Critical Care Time Critical Care Time Critical Care Time: No Discharge Plan Discharge Clinical Impression: Otitis externa Qualifiers: Otitis externa type: diffuse Chronicity: acute Laterality: left Qualified Code(s): H60.312 - Diffuse otitis externa, left ear Otitis media Qualifiers: Otitis media type: suppurative Chronicity: acute Laterality: left Recurrence: non-recurrent Spontaneous tympanic membrane rupture: without spontaneous rupture Qualified Code(s): H66.002 - Acute suppurative otitis media without spontaneous rupture of ear drum, left ear Patient Disposition: Home, Self-Care Instructions: Otitis Externa (DC), Ear Infection (ED) Additional Instructions: Your exam was consistent with both an inner and outer ear infection Take the prescribed antibiotics as directed, complete the entire course and do not miss any doses Use the drops as directed x1 week Take motrin and tylenol as needed for pain Do not get water in your ear. No Q-tips If you develop new or worsening symptoms call 911 or come back to the ER for further evaluation. Prescriptions: New ofloxacin 0.3 % drops 10 drp otic (ears) DAILY 7 Days Qty: 10 0RF levofloxacin 500 mg tablet 500 mg PO DAILY 7 Days Qty: 7 0RF No Action cyclobenzaprine 10 mg tablet 10 mg PO TID PRN (Reason: muscle spasm) Qty: 15 0RF ibuprofen 800 mg tablet 800 mg PO Q8H PRN (Reason: pain) Qty: 20 0RF lidocaine [Lidoderm] 5 % adhesive patch,medicated 1 patch topical DAILY Qty: 15 0RF Rx Instructions: leave on most painful area for up to 12 hrs albuterol sulfate 0.63 mg/3 mL solution for nebulization 0.63 mg inhalation QID PRN (Reason: shortness of breath or wheezing) Qty: 75 0RF azithromycin 250 mg tablet See Rx Instructions .ROUTE .COMPLEX Qty: 6 0RF Rx Instructions: take 500 mg today (day 1), then 250 mg for 4 days (days 2-5) prednisone 20 mg tablet 40 mg PO DAILY 5 Days Qty: 10 0RF (DME) AeroEclipse II Nebulizer [facility] [place] See Rx Instructions .ROUTE .MEDSUPPLY Qty: 1 0RF Rx Instructions: As directed codeine-guaifenesin [Guaifenesin AC] 10-100 mg/5 mL liquid 5 ml PO Q6H PRN (Reason: cold symptoms) Qty: 120 0RF albuterol sulfate 90 mcg/actuation HFA aerosol inhaler 1 inh inhalation QID PRN (Reason: shortness of breath or wheezing) Qty: 8.5 0RF lidocaine [Lidoderm] 5 % adhesive patch,medicated 1 patch topical DAILY MDD remove after 12 hours PRN (Reason: pain) Qty: 30 0RF Rx Instructions: leave on most painful area for up to 12 hrs naproxen 500 mg tablet 500 mg PO BID PRN (Reason: pain) 10 Days Qty: 20 0RF cyclobenzaprine 5 mg tablet 5 mg PO Q8H PRN (Reason: pain (scale score 7-10)) 5 Days Qty: 14 0RF acetaminophen [Tylophen] 500 mg capsule 500 mg PO Q6H PRN (Reason: fever) Qty: 14 0RF albuterol sulfate 90 mcg/actuation HFA aerosol inhaler 2 puff inhalation Q4-6H PRN (Reason: shortness of breath or wheezing) Qty: 8.5 0RF prednisone 50 mg tablet 50 mg PO DAILY Qty: 4 0RF azithromycin [Zithromax Z-Wero] 250 mg tablet See Rx Instructions .ROUTE .COMPLEX Qty: 6 0RF Rx Instructions: For 250 mg dose pack: take 500 mg today (day 1), then 250 mg for 4 days (days 2-5) albuterol sulfate 90 mcg/actuation HFA aerosol inhaler 1 inh inhalation QID PRN (Reason: shortness of breath or wheezing) Qty: 8.5 0RF azithromycin [Zithromax Z-Wero] 250 mg tablet See Rx Instructions .ROUTE .COMPLEX Qty: 6 0RF Rx Instructions: For 250 mg dose pack: take 500 mg today (day 1), then 250 mg for 4 days (days 2-5) acetaminophen [Tylenol Extra Strength] 500 mg tablet 500 mg PO Q6H PRN (Reason: fever or pain) Qty: 14 0RF benzonatate 100 mg capsule 100 mg PO TID PRN (Reason: cough) Qty: 14 0RF fluticasone propionate [Flonase Allergy Relief] 50 mcg/actuation spray,suspension 2 spray intranasal DAILY Qty: 16 0RF Rx Instructions: administer into each nostril hydrocortisone [Anti-Itch (HC)] 1 % cream 1 appl topical TID PRN (Reason: rash) Qty: 28.4 0RF
[2023-04-20 09:06] VITALS: BP 115/60; PULSE 80; RESP 18; TEMP 36.8; O2SAT 98
== END 2023-04-20 09:11 | disposition home or self-care (01) ==
PROVIDERS: Emergency Provider Emergency Medicine
DX: H60.312 Diffuse otitis externa, left ear (principal); H66.002 Acute suppurative otitis media without spontaneous rupture of ear drum, left ear
CPT/HCPCS: 99283; 99284

== ENCOUNTER 2023-06-10 11:48 | Emergency (ER) | payer OTHER, SELFPAY ==
--- NOTE | ~2023-06-10 | XR_ITS ---
EXAMINATION: XR CHEST 2 VIEW CLINICAL INFORMATION: Shortness of breath COMPARISON: 09/14/2022 TECHNIQUE: PA and lateral views of the chest obtained. FINDINGS: The lungs are clear. There are no pleural effusions. The cardiomediastinal silhouette is normal. XR/XR chest 2V IMPRESSION: No acute cardiopulmonary disease.
[2023-06-10 12:22] VITALS: BP 123/75; PULSE 82; RESP 18; TEMP 36.6; O2SAT 100; BMI 36.3
[2023-06-10 14:27] LABS: Influenza A PCR NEGATIVE (Negative); Influenza B PCR NEGATIVE (Negative); Resp Syncy Virus RNA Qual PCR NEGATIVE (Negative); SARS COV2 PCR INHOUSE NEGATIVE (Negative)
--- NOTE | 2023-06-10 18:51 | ED_ITS ---
HPI - General Adult General Chief complaint: Upper Respiratory Symptoms Stated complaint: Difficulty breathing Time Seen by Provider: 06/10/23 18:40 Source: patient, RN notes reviewed and old records reviewed Mode of arrival: ambulatory Limitations: no limitations History of Present Illness HPI narrative: 47-year-old male presents for evaluation of shortness of breath. Patient reports for the last 3 days or so he has ?felt like when I yawn it my breath get stuck. ? He states that he has take a deep breath to catch his breath He noted to nursing staff that he fell lip and facial tingling but did not mention this to myself He also complains of hyperventilating when this happens He reports a history of anxiety but ?not this bad. ? Denies any chest pain, fevers, chills, cough Related Data Previous Rx's Medication Instructions Recorded cyclobenzaprine 10 mg tablet 10 mg PO TID PRN muscle spasm #15 11/11/20 tabs ibuprofen 800 mg tablet 800 mg PO Q8H PRN pain #20 tabs 11/11/20 lidocaine 5 % topical patch 1 patch topical DAILY #15 ea 11/11/20 (Lidoderm) albuterol sulfate 0.63 mg/3 mL 0.63 mg (3 mL) inhalation QID PRN 05/01/21 solution for nebulization shortness of breath or wheezing #75 mL albuterol sulfate 90 mcg/actuation 1 inh inhalation QID PRN shortness 05/01/21 aerosol inhaler of breath or wheezing #8.5 grams azithromycin 250 mg tablet See Rx Instructions PO .COMPLEX #6 05/01/21 tabs codeine 10 mg-guaifenesin 100 mg/5 5 ml PO Q6H PRN cold symptoms #120 05/01/21 mL oral liquid (Guaifenesin AC) mL nebulizers (AeroEclipse II #1 ea 05/01/21 Nebulizer) prednisone 20 mg tablet 40 mg (2 x 20 mg) PO DAILY rash 5 05/01/21 days #10 tabs azithromycin 250 mg tablet See Rx Instructions PO .COMPLEX #6 11/19/21 (Zithromax Z-Wero) tabs acetaminophen 500 mg capsule 500 mg PO Q6H PRN fever #14 caps 11/26/21 (Tylophen) cyclobenzaprine 5 mg tablet 5 mg PO Q8H PRN pain (scale score 11/26/21 7-10) 5 days #14 tabs lidocaine 5 % topical patch 1 patch topical DAILY PRN pain #30 11/26/21 (Lidoderm) ea naproxen 500 mg tablet 500 mg PO BID PRN pain 10 days #20 11/26/21 tabs acetaminophen 500 mg tablet 500 mg PO Q6H PRN fever or pain 09/07/22 (Tylenol Extra Strength) #14 tabs benzonatate 100 mg capsule 100 mg PO TID PRN cough #14 caps 09/07/22 fluticasone propionate 50 2 spray intranasal DAILY #16 grams 09/07/22 mcg/actuation nasal spray,suspension (Flonase Allergy Relief) hydrocortisone 1 % topical cream 1 appl topical TID PRN rash #28.4 09/07/22 (Anti-Itch (hydrocortisone)) grams albuterol sulfate 90 mcg/actuation 2 puff inhalation Q4-6H PRN 09/09/22 aerosol inhaler shortness of breath or wheezing #8.5 grams prednisone 50 mg tablet 50 mg PO DAILY #4 tabs 09/09/22 albuterol sulfate 90 mcg/actuation 1 inh inhalation QID PRN shortness 09/14/22 aerosol inhaler of breath or wheezing #8.5 grams azithromycin 250 mg tablet See Rx Instructions PO .COMPLEX #6 09/14/22 (Zithromax Z-Wero) tabs levofloxacin 500 mg tablet 500 mg PO DAILY 7 days #7 tabs 04/20/23 ofloxacin 0.3 % ear drops 10 drp otic (ears) DAILY 7 days 04/20/23 #10 mL Allergies Allergy/AdvReac Type Severity Reaction Status Date / Time Penicillins [PCN] Allergy Unknown UNKNOWN Verified 06/10/23 12:21 Review of Systems Constitutional: Constitutional: Denies chills, Denies fever(s) and Denies headache(s) Eyes: Eyes: Denies blurry vision ENT: Denies headache(s) Cardiovascular: Cardiovascular: Denies chest pain and Reports dyspnea Respiratory: Respiratory: Denies cough and Reports dyspnea Gastrointestinal: Gastrointestinal: Denies abdominal pain, Denies nausea and Denies vomiting Musculoskeletal: Musculoskeletal: Denies back pain Integumentary/Breasts: Skin/Breast: Denies rash Neurologic: Denies headache(s) Psychiatric: Psychiatric: Reports anxiety PMFSH Past Medical History Medical History Asthma No known health problems Sinus infection Social History Social History Alcohol intake: never Advance Directives: No Advance Directives Information Provided: No Physical Exam ED Vital Signs: Vital Signs - 24 hr 06/10/23 12:22 Temperature 98 F Pulse Rate 82 Respiratory Rate 18 Blood Pressure 123/75 Pulse Oximetry 100 Oxygen Delivery Method Room Air BMI result Body Mass Index 36.3 Const General: healthy appearing, comfortable, no acute distress, alert and awake Nutritional Appearance: well nourished Orientation/consciousness: patient oriented x3 HENMT Head: Yes normocephalic and Yes atraumatic Eyes Eyelids: Yes eyelids normal Conjunctivae: conjunctivae normal Sclerae: sclerae normal Corneas: corneas normal Pupils: Equal, round and reactive pupils present EOM: EOMs intact bilaterally Resp Effort & Inspection: normal respiratory effort, able to speak in complete sentences, no audible wheezes and not labored Auscultation: clear to auscultation bilaterally Skin General skin exam: elasticity normal Neuro General: patient oriented x3 Cranial nerves: Yes Equal, round and reactive pupils present and Yes Bilaterally intact EOM present Cognition (Neuro): normal cognition Extrem Other: Moving all extremities well without any obvious deformities Medical Decision Making Medical Decision Making MDM Narrative: 47-year-old male presents for evaluation of shortness of breath. His symptoms appear most consistent with anxiety describes hyperventilating, facial tingling when this occurs. His symptoms are intermittent and will last a few minutes. On exam his vital signs are stable, his lungs are clear to auscultation. He has no leg swelling to suggest heart failure. Patient's chest x-ray is clear viral swabs are clear. The patient is stable for discharge to follow-up with the PCP. He was provided with outpatient resources Differential Diagnosis Differential Diagnoses: The differential diagnosis associated with the presentation includes Shortness of breath Dyspnea Upper respiratory infection Pneumonia Bronchitis Anxiety Lab Data Labs: Lab Results 06/10/23 Range/Units 13:20 Influenza Type A (PCR) NEGATIVE (Negative) Influenza Type B (PCR) NEGATIVE (Negative) RSV RNA Qual (PCR) NEGATIVE (Negative) SARS-CoV-2 RNA (RT-PCR) NEGATIVE (Negative) Independent Interpretation I performed an independent interpretation of an: Plain X-Ray (No infiltrates) Radiology Impression Discussion of test interpretation with radiology: I have reviewed the radiologist's reading. (No acute cardiopulmonary disease) Discharge Plan Discharge Clinical Impression: Acute dyspnea Patient Disposition: Home, Self-Care Instructions: Anxiety (ED) Additional Instructions: Your chest x-ray was clear. Your viral swabs were negative. Your vital signs are within normal limits Your symptoms may be related to anxiety Follow-up with your primary doctor and return for new or worsening symptoms Prescriptions: No Action cyclobenzaprine 10 mg tablet 10 mg PO TID PRN (Reason: muscle spasm) Qty: 15 0RF ibuprofen 800 mg tablet 800 mg PO Q8H PRN (Reason: pain) Qty: 20 0RF lidocaine [Lidoderm] 5 % adhesive patch,medicated 1 patch topical DAILY Qty: 15 0RF Rx Instructions: leave on most painful area for up to 12 hrs albuterol sulfate 0.63 mg/3 mL solution for nebulization 0.63 mg inhalation QID PRN (Reason: shortness of breath or wheezing) Qty: 75 0RF azithromycin 250 mg tablet See Rx Instructions .ROUTE .COMPLEX Qty: 6 0RF Rx Instructions: take 500 mg today (day 1), then 250 mg for 4 days (days 2-5) prednisone 20 mg tablet 40 mg PO DAILY 5 Days Qty: 10 0RF (DME) AeroEclipse II Nebulizer [facility] [place] See Rx Instructions .ROUTE .MEDSUPPLY Qty: 1 0RF Rx Instructions: As directed codeine-guaifenesin [Guaifenesin AC] 10-100 mg/5 mL liquid 5 ml PO Q6H PRN (Reason: cold symptoms) Qty: 120 0RF albuterol sulfate 90 mcg/actuation HFA aerosol inhaler 1 inh inhalation QID PRN (Reason: shortness of breath or wheezing) Qty: 8.5 0RF lidocaine [Lidoderm] 5 % adhesive patch,medicated 1 patch topical DAILY MDD remove after 12 hours PRN (Reason: pain) Qty: 30 0RF Rx Instructions: leave on most painful area for up to 12 hrs naproxen 500 mg tablet 500 mg PO BID PRN (Reason: pain) 10 Days Qty: 20 0RF cyclobenzaprine 5 mg tablet 5 mg PO Q8H PRN (Reason: pain (scale score 7-10)) 5 Days Qty: 14 0RF acetaminophen [Tylophen] 500 mg capsule 500 mg PO Q6H PRN (Reason: fever) Qty: 14 0RF albuterol sulfate 90 mcg/actuation HFA aerosol inhaler 2 puff inhalation Q4-6H PRN (Reason: shortness of breath or wheezing) Qty: 8.5 0RF prednisone 50 mg tablet 50 mg PO DAILY Qty: 4 0RF azithromycin [Zithromax Z-Wero] 250 mg tablet See Rx Instructions .ROUTE .COMPLEX Qty: 6 0RF Rx Instructions: For 250 mg dose pack: take 500 mg today (day 1), then 250 mg for 4 days (days 2-5) albuterol sulfate 90 mcg/actuation HFA aerosol inhaler 1 inh inhalation QID PRN (Reason: shortness of breath or wheezing) Qty: 8.5 0RF azithromycin [Zithromax Z-Wero] 250 mg tablet See Rx Instructions .ROUTE .COMPLEX Qty: 6 0RF Rx Instructions: For 250 mg dose pack: take 500 mg today (day 1), then 250 mg for 4 days (days 2-5) acetaminophen [Tylenol Extra Strength] 500 mg tablet 500 mg PO Q6H PRN (Reason: fever or pain) Qty: 14 0RF benzonatate 100 mg capsule 100 mg PO TID PRN (Reason: cough) Qty: 14 0RF fluticasone propionate [Flonase Allergy Relief] 50 mcg/actuation spray,suspension 2 spray intranasal DAILY Qty: 16 0RF Rx Instructions: administer into each nostril hydrocortisone [Anti-Itch (HC)] 1 % cream 1 appl topical TID PRN (Reason: rash) Qty: 28.4 0RF ofloxacin 0.3 % drops 10 drp otic (ears) DAILY 7 Days Qty: 10 0RF levofloxacin 500 mg tablet 500 mg PO DAILY 7 Days Qty: 7 0RF
== END 2023-06-10 19:17 | disposition home or self-care (01) ==
PROVIDERS: Emergency Provider Emergency Medicine
DX: R06.02 Shortness of breath (principal); Z20.822 Contact with and (suspected) exposure to COVID-19; Z20.828 Contact with and (suspected) exposure to other viral communicable diseases
CPT/HCPCS: 0241U; 71046; 99282; 99283

== ENCOUNTER 2025-03-01 20:03 | Emergency (ER) | payer OTHER, SELFPAY ==
--- NOTE | ~2025-03-01 | CT_ITS ---
CLINICAL HISTORY: Fall neck pain CT cervical spine without contrast Comparison: None provided Findings: Reversal of the normal cervical lordosis is likely positional. Mild degenerative disc disease at C4-C5 through C6-C7. No acute fractures or dislocations. Visualized intracranial contents are unremarkable. Soft tissues of the neck are normal. No consolidation or effusion at the lung apices. IMPRESSION: No acute findings. This document has been electronically signed by: Chana Amaya MD on 03/01/2025 22:53:36
--- NOTE | ~2025-03-01 | CT_ITS ---
CLINICAL HISTORY: Fall, head injury CT head without contrast Comparison: None provided Findings: No intra-axial mass, midline shift, hydrocephalus, or acute hemorrhage. No significant atrophy-like change or white matter disease. The visualized paranasal sinuses and mastoid air cells are normal. The orbits are unremarkable. There is no acute fracture. IMPRESSION: 1. No acute intracranial findings. This document has been electronically signed by: Chana Amaya MD on 03/01/2025 22:55:09
[2025-03-01 20:06] VITALS: BP 144/71; PULSE 93; RESP 18; TEMP 36.7; O2SAT 93; BMI 37.3
--- NOTE | 2025-03-01 20:27 | ED_ITS ---
HPI - General Adult General Chief complaint: General Medical Stated complaint: Head injury/Dizziness Time Seen by Provider: 03/01/25 20:22 Source: patient Mode of arrival: ambulatory Limitations: no limitations History of Present Illness ED Provider: DR. Yee HPI narrative: 49-year-old male presented for evaluation of feeling dizzy after 27 in computer monitor felt on his head, patient sustained LOC for few sec, sustained a superficial abrasion on right frontal of the forehead, +headache, no blurry vision, no nausea, no vomiting, no anticoagulation therapy, no antiplatelet t herapy. Related Data Previous Rx's ?Medication ?Instructions ?Recorded cyclobenzaprine 10 mg tablet 10 mg PO TID PRN muscle s pasm #15 11/11/20 tabs ibuprofen 800 mg tablet 800 mg PO Q8H PRN pain #20 t abs 11/11/20 lidocaine 5 % topical patch 1 patch topical DAILY #15 ea 11/11/20 (Lidoderm) albuterol sulfate 0.63 mg/3 mL 0.63 mg (3 mL) inhalati on QID PRN 05/01/21 solution for nebulization shortness of breath or wheez ing #75 mL albuterol sulfate 90 mcg/actuation 1 inh inhalation QI D PRN shortness 05/01/21 aerosol inhaler of breath or wheezing #8.5 g corrie azithromycin 250 mg tablet See Rx Instructions PO .COM PLEX #6 05/01/21 tabs codeine 10 mg-guaifenesin 100 mg/5 5 ml PO Q6H PRN col d symptoms #120 05/01/21 mL oral liquid (Guaifenesin AC) mL nebulizers (AeroEclipse II #1 ea 05/01/21 Nebulizer) prednisone 20 mg tablet 40 mg (2 x 20 mg) PO DAILY r miriam 5 05/01/21 days #10 tabs azithromycin 250 mg tablet See Rx Instructions PO .COM PLEX #6 11/19/21 (Zithromax Z-Wero) tabs acetaminophen 500 mg capsule 500 mg PO Q6H PRN fever # 14 caps 11/26/21 (Tylophen) cyclobenzaprine 5 mg tablet 5 mg PO Q8H PRN pain (scal e score 11/26/21 7-10) 5 days #14 tabs lidocaine 5 % topical patch 1 patch topical DAILY PRN pain #30 11/26/21 (Lidoderm) ea naproxen 500 mg tablet 500 mg PO BID PRN pain 10 da ys #20 11/26/21 tabs acetaminophen 500 mg tablet 500 mg PO Q6H PRN fever or pain 09/07/22 (Tylenol Extra Strength) #14 tabs benzonatate 100 mg capsule 100 mg PO TID PRN cough #14 caps 09/07/22 fluticasone propionate 50 2 spray intranasal DAILY #16 grams 09/07/22 mcg/actuation nasal spray,suspension (Flonase Allergy Relief) hydrocortisone 1 % topical cream 1 appl topical TID WI N rash #28.4 09/07/22 (Anti-Itch (hydrocortisone)) grams albuterol sulfate 90 mcg/actuation 2 puff inhalation Q 4-6H PRN 09/09/22 aerosol inhaler shortness of breath or wheez ing #8.5 grams prednisone 50 mg tablet 50 mg PO DAILY #4 tabs 09/09 albuterol sulfate 90 mcg/actuation 1 inh inhalation QI D PRN shortness 09/14/22 aerosol inhaler of breath or wheezing #8.5 g corrie azithromycin 250 mg tablet See Rx Instructions PO .COM PLEX #6 09/14/22 (Zithromax Z-Wero) tabs levofloxacin 500 mg tablet 500 mg PO DAILY 7 days #7 t abs 04/20/23 ofloxacin 0.3 % ear drops 10 drp otic (ears) DAILY 7 d ays 04/20/23 #10 mL Allergies Allergy/AdvReac Type Severity Reaction Status Date / Time Penicillins (PCN) Allergy Unknown UNKNOWN Verified 03/01/25 20:11 Review of Systems Review of Systems: All other systems are reviewed and are negative Constitutional: Reports as per HPI and Reports no additional constitutional complaints Eyes: Reports as per HPI and Reports no additional eye complaints Reports system reviewed and no additional complaints, except as documented Cardiovascular: Reports as per HPI and Reports no additional cardiovascular complaints Respiratory: Reports as per HPI and Reports no additional respiratory complaints Gastrointestinal: Reports as per HPI and Reports no additional gastrointestinal complaints Genitourinary: Reports no additional female genitourinary complaints Musculoskeletal: Reports no additional musculoskeletal complaints Skin/Breast: Reports system reviewed and no additional complaints, except as docu Psychiatric: Reports no additional psychiatric complaints Endocrine: Reports no additional endocrine complaints Hematologic/Lymphatic: Reports no additional hematologic/lymphatic complaints Allergic/Immunologic: Reports no additional allergic/immunologic complaints Reports system reviewed and no additional complaints, except as documented and Reports Abnormal speech present [facility] Past Medical History Medical History Sinus infection Asthma No known health problems Social History Social History Alcohol intake: never Physical Exam ED Vital Signs: Vital Signs - 24 hr 03/01/25 20:06 Temperature 98.1 F Pulse Rate 93 Respiratory Rate 18 Blood Pressure 144/71 H Pulse Oximetry 93 Oxygen Delivery Method Room Air BMI result Body Mass Index 37.3 Vital signs have been reviewed and appear to be correct. Blood pressure elevated. Heart rate normal. Respiratory rate normal. Temperature normal. Oxygen saturation normal. Appearance: Alert. Oriented X3. No acute distress. Head: Normal external exam. Normocephalic. Small superficial scratch on right frontal area of scale, no active bleeding, No Perez signs noted. No raccoon eyes noted Eyes: PERRLA. EOMI. Conjunctiva and sclera normal. Eyelids normal. ENT: TM's Normal. Pharynx normal. Uvula midline. Moist mucous membranes. No trismus noted. No drooling noted. No muffled voice noted. Neck: Normal inspection. Neck supple. FROM. No adenopathy. Thyroid Normal. No meningeal signs. No neck mass noted. CVS: Normal heart rate and rhythm. Heart sound normal. No murmurs noted. Pulses normal throughout. Respiratory: No respiratory distress. Painless inspiration. Breath sounds normal. No wheezes/rales/rhonchi noted. Chest nontender. No accessory muscle usage noted or decreased air movement noted. Abdomen: Soft and nontender. Bowel sounds normal in all 4 quadrants. No distention noted. No organomegaly noted. No visible injury noted. Back: No CVA tenderness. Full range of motion noted. Skin: Skin warm and dry. Normal skin color. Normal skin turgor. No rashes/lesions/lacerations noted. Extremities: No lower extremity edema. Extremities exhibit normal range of motion. Extremities nontender. Neuro: Oriented X 3., GCS of 15. Cranial nerve exam: II-XII are grossly intact No motor deficit. No sensory deficit. Reflexes normal. Course Reevaluation(s) Reevaluation #1: GCS of 15, normal neuro exam, negative head CT for acute intracranial pathology, patient acting at his baseline, no nausea, no vomiting, no blurry vision, no weakness, numbness. Will discharge to follow-up with PCP. Psat-cbl-gzxsfiv Tylenol/ibuprofen if needed for pain. Time: 22:30 Medical Decision Making Differential Diagnosis Differential Diagnoses: The differential diagnosis associated with the presentation includes (Intracranial bleed, postconcussion syndrome, cervical spine injury, back injury, chest injury, abdominal injury, extremity injury.) Admission/Observation Consideration of admission/observation: Escalation of care including admission/observation considered Independent Interpretation I performed an independent interpretation of an: CT Scan (CT head/cervical spine: No acute pathology.) Radiology Impression Discussion of test interpretation with radiology: I have reviewed the radiologist's reading. Discharge Plan Discharge Clinical Impression: Post-concussion syndrome Patient Disposition: Home, Self-Care Instructions: Post Concussion Syndrome (ED) Additional Instructions: Take [id number] Tylenol 500 mg or ibuprofen 200 mg every 6 hours if needed for pain. Prescriptions: No Action cyclobenzaprine 10 mg tablet 10 mg PO TID PRN (Reason: muscle spasm) Qty: 15 0RF ibuprofen 800 mg tablet 800 mg PO Q8H PRN (Reason: pain) Qty: 20 0RF lidocaine [Lidoderm] 5 % adhesive patch,medicated 1 patch topical DAILY Qty: 15 0RF Rx Instructions: leave on most painful area for up to 12 hrs albuterol sulfate 0.63 mg/3 mL solution for nebulization 0.63 mg inhalation QID PRN (Reason: shortness of breath or wheezing) Qty: 75 0RF azithromycin 250 mg tablet See Rx Instructions .ROUTE .COMPLEX Qty: 6 0RF Rx Instructions: take 500 mg today (day 1), then 250 mg for 4 days (days 2-5) prednisone 20 mg tablet 40 mg PO DAILY 5 Days Qty: 10 0RF (DME) AeroEclipse II Nebulizer [facility] See Rx Instructions .ROUTE .MEDSUPPLY Qty: 1 0RF Rx Instructions: As directed codeine-guaifenesin [Guaifenesin AC] 10-100 mg/5 mL liquid 5 ml PO Q6H PRN (Reason: cold symptoms) Qty: 120 0RF albuterol sulfate 90 mcg/actuation HFA aerosol inhaler 1 inh inhalation QID PRN (Reason: shortness of breath or wheezing) Qty: 8.5 0RF lidocaine [Lidoderm] 5 % adhesive patch,medicated 1 patch topical DAILY MDD remove after 12 hours PRN (Reason: pain) Qty: 30 0RF Rx Instructions: leave on most painful area for up to 12 hrs naproxen 500 mg tablet 500 mg PO BID PRN (Reason: pain) 10 Days Qty: 20 0RF cyclobenzaprine 5 mg tablet 5 mg PO Q8H PRN (Reason: pain (scale score 7-10)) 5 Days Qty: 14 0RF acetaminophen [Tylophen] 500 mg capsule 500 mg PO Q6H PRN (Reason: fever) Qty: 14 0RF albuterol sulfate 90 mcg/actuation HFA aerosol inhaler 2 puff inhalation Q4-6H PRN (Reason: shortness of breath or wheezing) Qty: 8.5 0RF prednisone 50 mg tablet 50 mg PO DAILY Qty: 4 0RF azithromycin [Zithromax Z-Wero] 250 mg tablet See Rx Instructions .ROUTE .COMPLEX Qty: 6 0RF Rx Instructions: For 250 mg dose pack: take 500 mg today (day 1), then 250 mg for 4 days (days 2-5) albuterol sulfate 90 mcg/actuation HFA aerosol inhaler 1 inh inhalation QID PRN (Reason: shortness of breath or wheezing) Qty: 8.5 0RF azithromycin [Zithromax Z-Wero] 250 mg tablet See Rx Instructions .ROUTE .COMPLEX Qty: 6 0RF Rx Instructions: For 250 mg dose pack: take 500 mg today (day 1), then 250 mg for 4 days (days 2-5) acetaminophen [Tylenol Extra Strength] 500 mg tablet 500 mg PO Q6H PRN (Reason: fever or pain) Qty: 14 0RF benzonatate 100 mg capsule 100 mg PO TID PRN (Reason: cough) Qty: 14 0RF fluticasone propionate [Flonase Allergy Relief] 50 mcg/actuation spray,suspension 2 spray intranasal DAILY Qty: 16 0RF Rx Instructions: administer into each nostril hydrocortisone [Anti-Itch (HC)] 1 % cream 1 appl topical TID PRN (Reason: rash) Qty: 28.4 0RF ofloxacin 0.3 % drops 10 drp otic (ears) DAILY 7 Days Qty: 10 0RF levofloxacin 500 mg tablet 500 mg PO DAILY 7 Days Qty: 7 0RF Referrals: Rudy Rodriguez MD [Primary Care Provider, Internal Medicine] Print Language: [place]
--- OUTSIDE RECORDS SUMMARY | 2025-03-01 20:35 | XMS_ITS | Clinical Summary ---
Author Organization [address] Address [address] [place] [phone] Phone Care Team Providers Care Acidizer Helper Name Role Phone Rudy Rodriguez MD Primary Care Provider Allergies Active Allergy Reactions Criticality Noted Date Comments Penicillins Nausea And Vomiting 08/26/2011 Medications cyanocobalamin (VITAMIN B-12) 1,000 mcg tablet Take 1 tablet (1,000 mcg total) by mouth 1 (one) time each day. 90 tablet 3 5 Active albuterol HFA (PROAIR HFA ; PROVENTIL HFA ; VENTOLIN HFA) 90 mcg/actuation inhaler Inhale 2 puffs by mouth every 4 (four) hours if needed for wheezing. 6.7 g 1 5 Active cholecalcifero l (VITAMIN D-3) 50 mcg (2,000 unit) tablet Take 1 tablet (2,000 Units total) by mouth 1 (one) time each day. 90 tablet 1 5 Active fluticasone propionate (FLONASE) 50 mcg/actuation nasal spray Administer 2 sprays into each nostril 2 (two) times a day. Shake gently. Before first use, prime pump. After use, clean tip and replace cap. 16 g 1 5 Active polyethylene glycol (MIRALAX) 17 gram packet Take 17 g by mouth 1 (one) time each day. 1530 g 1 5 Active fluticasone propionate (FLONASE) 50 mcg/actuation nasal spray 1 [place] by Each Nare route daily. 4 02/02/20 25 Discontinu ed(Reorder ) cholecalcifero l (VITAMIN D-3) 50 mcg (2,000 unit) tablet Take 1 tablet (2,000 Units total) by mouth 1 (one) time each day. 90 tablet 3 5 02/02/20 25 Discontinu ed(Reorder ) albuterol HFA (PROAIR HFA ; PROVENTIL HFA ; VENTOLIN HFA) 90 mcg/actuation inhaler Inhale 2 puffs by mouth every 4 (four) hours if needed for wheezing. 6.7 g 3 5 02/02/20 25 Discontinu ed(Reorder ) colchicine (COLCRYS) 0.6 mg tablet Take 1 tablet by mouth 2 times daily until resolution, up to 10 days. 20 tablet 5 02/02/20 25 Discontinu ed(Side effects) predniSONE (DELTASONE) 10 mg tablet Take 2 tabs PO daily for 3 days then 1 tab PO daily for 4 days 10 tablet 5 02/02/20 25 Discontinu ed(Therapy completed) Active Problems Problem Noted Date Diagnosed Date Lipoma of lateral chest wall 07/18/2023 Lipoma of neck 07/02/2023 Mild intermittent asthma without complication Obesity (BMI 35.0-39.9 without comorbidity) 11/29 Asthma 08/26/2011 Overview (05/06/2024): intermittent Encounters Date Type Department Care Team Description 02/01/2025 2:45 PM EDT Office Visit Adult Medicine [address] [phone] Rudy Rodriguez MD Chronic gout of left foot, unspecified cause (Primary Dx); Mild intermittent asthma without complication; Vitamin B12 deficiency; Mixed hyperlipidemia; Vitamin D deficiency disease; Other constipation; Screening for colorectal cancer 12/27/2024 Telephone Adult Medicine [address] [phone] Rudy Rodriguez MD 12/20/2024 1:15 PM EDT Office Visit Walk-In Clinic - [facility] [address] [place] [phone] Beto Julian PA Acute gout involving toe of left foot, unspecified cause (Primary Dx) 12/20/2024 Telephone Adult Medicine [address] [phone] Rudy Rodriguez MD from Last 3 Months Immunizations Name Administration Dates Next Due Influenza Quadravalent, MDCK , 0.5ml, preservative free (Flucelvax) 6mo and older 04/14/2018 Influenza trivalent, 0.5mL, preservative free (Fluarix; FluLaval; Fluzone) ages 6mo and older (Afluria) 3 years and older 04/16/2017,04/02/2016,04/06/2015,09/02 Influenza trivalent, MDCK, 0 .5mL, with preservative (Flucelvax) 6mo and older 08/25/2024 Pneumococcal polysaccharide 23 valent (Pneumovax 23) 2yo and older 05/14/2016 Tdap Tetanus diptheria acell ular pertussis (Boostrix; Adacel) 7yo and older 04/01/2019 Surgical History Surgery Date Site/Laterality Comments OTHER SURGICAL HISTORY PROCEDURE: DENIES PREVIOUS SURGERY Medical History Medical History Date Comments Asthma 08/26/2011 DX:Asthma; COMME NT: intermittent Obesity (BMI 30-39.9) 12/26/2017 DX:Obesity (BMI 30-39.9) Other seasonal allergic rhinitis DX:Other seasonal allergic rhinitis Family History Medical History Relation Name Comments Hypertension Brother Other: high cholesterol Brother Asthma Father Colon cancer Neg Hx Heart attack Neg Hx Prostate cancer Neg Hx Relation Name Status Comments Brother Father Social History Tobacco Use Types Packs/Day Years Used Date Smoking Tobacco: Former Cigarettes 0.3 13 0 06/30/1998 - 06/30/2011 Smokeless Tobacco: Never Tobacco Cessation:Counseling Given: Not Answered Alcohol Use Standard Drinks/Week Comments Yes 0 (1 standard drink = 0.6 oz pur e alcohol) Housing Instability Answer Date Recorde d Are you worried that in the next 2 months you may not have stable housing? No 12/20/2024 Food Access & Nutrition Answer Date Rec orded Do you have access to a vari ety of food including fruits and vegetables? Yes 12/20/2024 Health Literacy Answer Date Recorded How often do you need to hav e someone help you when you read instructions, pamphlets, or other written material from your doctor or pharmacy? Never 12/20/2024 Caregiver: How often do you need to have someone help you when you read instructions, pamphlets, or other written material from your doctor or pharmacy? Not on file 12/20/2024 Financial Risk Answer Date Recorded How hard is it for you to pa y for the very basics like food, housing, medical care, and air conditioning / heating? Not asked 12/20/2024 Transportation Answer Date Recorded Has the lack of transportati on kept you from meetings, work, or from getting things needed for daily living? No Has the lack of transportati on kept you from medical appointments or from getting medications? No 12/20/2024 Social Isolation Answer Date Recorded How often do you feel lonely or isolated from th ose around you? Never 12/20/2024 Food Risk Answer Date Recorded Within the past 12 months we worried whether our food would run out before we got money to buy more. Not asked 12/20/2024 Within the past 12 months th e food we bought just didn't last and we didn't have money to get more. Not asked 12/20/2024 Dependent Care Answer Date Recorded Do you need help finding or paying for care for your loved ones. For example, child and family counselor or elderly care for an older adult? No 12/20/2024 Education Answer Date Recorded Do you think completing more education or training, like finishing a GED, going to college, or learning a trade, would be helpful for you? No 12/20/2024 Employment and Income Answer Date Recor ded During the last four weeks, have you been actively looking for work? No 12/20/2024 Living Situation Answer Date Recorded What is your living situation? 0 12/20/2024 Sex and Gender Information Value Date Recorded Sex Assigned at Not on file Legal Sex Male 9:51 AM EST Gender Identity Not on file Sexual Orientation Not on file Obstetrics History Last Filed Vital Signs Vital Sign Reading Time Taken Comments Blood Pressure 122/70 02/01/2025 2:24 PM EDT Pulse 78 02/01/2025 2:24 PM EDT Temperature 36 C (96.8 F) 02/01/2025 2:24 PM EDT Respiratory Rate 16 02/01/2025 2:24 PM EDT Oxygen Saturation 97% 12/20/2024 1:07 PM EDT Inhaled Oxygen Concentration - - Weight 101 kg (222 lb) 02/01/2025 2:24 PM EDT Height 167.6 cm (5' 6 ) 02/01/2025 2:24 PM EDT Body Mass Index 35.83 02/01/2025 2:24 PM EDT Plan of Treatment Upcoming Encounters Date Type Department Care Team (Late st Contact Info) Description 07/05/2025 11:00 AM EST Office Visit Adult Medicine [address] [phone] Rudy Rodriguez MD [address] [place] [phone] Health Maintenance Due Date Last Done Comments Hepatitis B Vaccines (1 of 3 - 19+ 3-dose series) 10/28/1995 Pneumococcal Vaccine: Pediatrics (0 to 5 Years) and At-Risk Patients (6 to 49 Years) (2 of 2 - PCV) 05/14/2017 05/14/2016 Colorectal Cancer Screening: Colonoscopy 01/27/2024 HIV Screening 01/27/2024 Hepatitis C Screening 01/27/2024 COVID-19 Vaccine ( season) 2024 11/16/2020, 10/26/2020 Depression Screening 06/30/2024 Influenza Vaccine (#1) 2025 , 04/14/2018, 04/16/2017, Additional history exists Social Influencers of Health Screening 12/20/2025 12/20/2024 Cholesterol Screening (Lipid Panel) 12/16/2028 12/17/2023, 12/17/2023 DTaP,Tdap,and Td Vaccines (2 - Td or Tdap) 04/01/2029 04/01/2019 HIB Vaccines Aged Out No longer eligi ble based on patient's age to complete this topic HPV Vaccines Aged Out No longer eligi ble based on patient's age to complete this topic Hepatitis A Vaccines Aged Out No long er eligible based on patient's age to complete this topic IPV Vaccines Aged Out No longer eligi ble based on patient's age to complete this topic MMR Vaccines Aged Out No longer eligi ble based on patient's age to complete this topic Meningococcal ACWY Vaccine Aged Out N o longer eligible based on patient's age to complete this topic Meningococcal B Vaccine Aged Out No l onger eligible based on patient's age to complete this topic RSV Immunization Patients Under 20 months Aged Out No longer eligible based on patient's age to complete this topic Varicella Vaccines Aged Out No longer eligible based on patient's age to complete this topic Procedures Procedure Name Priority Date/Time Associated Diagnosis Comments VITAMIN B12 Routine 02/01/2025 3:08 PM EDT Vitamin B12 deficiency VITAMIN D 25 HYDROXY Routine 02/01/2025 3:08 PM EDT Vitamin D deficiency URIC ACID Routine 02/01/2025 3:08 PM EDT Chronic gout of left foot, unspecified cause LIPID PANEL Routine 12/17/2023 from Last 3 Months or Most Recently Relevant to Health Maintenance Results * Vitamin D 25 hydroxy (02/01/2025 3:08 PM EDT) Vit D, 25-Hydroxy 32.4 30.0 - 80.0 ng/mL LAB CHEMISTRY METHOD 02/01/2025 7:29 PM EDT [facility] Blood Venous blood specimen / Unknown Venipuncture / Unknown 02/01/2025 3:08 PM EDT 02/01/2025 3:08 PM EDT us Rudy Rodriguez MD LAB BLOOD ORDERABLES Final Result [facility] [address] [place] [address], [place] [phone] * Uric acid (02/01/2025 3:08 PM EDT) [facility] Uric Acid 7.4 3.7 - 9.2 mg/dL LAB CHEMISTRY METHOD 02/01/2025 7:05 PM EDT [facility] Blood Venous blood specimen / Unknown Venipuncture / Unknown 02/01/2025 3:08 PM EDT 02/01/2025 3:08 PM EDT Rudy Rodriguez MD LAB BLOOD ORDERABLES Final Result [facility] [address] [place] [address], [place] [phone] * Vitamin B12 (02/01/2025 3:08 PM EDT) [facility] Vitamin B-12 683 250 - 900 pcg/mL LAB CHEMISTRY METHOD 02/01/2025 7:27 PM EDT [facility] Blood Venous blood specimen / Unknown Venipuncture / Unknown 02/01/2025 3:08 PM EDT 02/01/2025 3:08 PM EDT Rudy Rodriguez MD LAB BLOOD ORDERABLES Final Result [facility] [address] [place] [address], [place] [phone] * (ABNORMAL) Lipid panel (12/17/2023) [facility] LDL/HDL Ratio 4 0 - 4 Triglycerides 125 0 - 150 mg/dL Cholesterol 209(A) 0 - 200 mg/dL HDL 50 >=40 mg/dL LDL Cholesterol 134(A) 0 - 100 mg/dL Blood Venous blood specimen / Unknown Historical Provider LAB BLOOD ORDERABLES Jessica l Result from Last 3 Months or Most Recently Relevant to Health Maintenance Insurance [facility] [employer] Care Teams Acidizer Helper Relationship Specialty Start Date End Date Rudy Rodriguez MD [address] [place] [address] PCP - General 06/12/23
[2025-03-01 21:46] VITALS: BP 140/70; PULSE 100; RESP 15; TEMP 37.2; O2SAT 100
[2025-03-01 23:26] VITALS: BP 140/70; PULSE 100; RESP 15; TEMP 37.2; O2SAT 100
== END 2025-03-01 23:26 | disposition home or self-care (01) ==
PROVIDERS: Emergency Provider Emergency Medicine; PCP Internal Medicine
DX: S00.81XA Abrasion of other part of head, initial encounter (principal); W20.8XXA Other cause of strike by thrown, projected or falling object, initial encounter; Y93.9 Activity, unspecified; Y92.9 Unspecified place or not applicable; Y99.9 Unspecified external cause status; F07.81 Postconcussional syndrome; M54.2 Cervicalgia; R42 Dizziness and giddiness; R51.9 Headache, unspecified
CPT/HCPCS: 70450; 72125; 99283; 99284

== ENCOUNTER → 2025-03-01 20:22 | Outpatient (BNV) | payer OTHER, SELFPAY | PROVIDERS: Emergency Provider Emergency Medicine; PCP Internal Medicine; Visit Provider Radiology Diagnostic Radiology | DX: M50.321 Other cervical disc degeneration at C4-C5 level (principal); S09.90XA Unspecified injury of head, initial encounter | CPT/HCPCS: 70450; 72125 ==